=== PATIENT | female | born 1995 | race Caucasian/White ===

== ENCOUNTER → 2018-09-13 15:12 | Outpatient (CLI) | payer OTHER, SELFPAY ==
[2018-09-13 18:00] LABS: Chlamydia Trachomatis by PCR Negative (Negative); Neisserai gonorrhoeae by PCR Negative (Negative); Probe Check PASS; Sample Adequacy Control PASS; Specimen Processing Control PASS
[2018-09-16 14:12] LABS: HPV Reflexed? NOT INDICATED
--- OUTSIDE RECORDS SUMMARY | 2018-11-09 08:22 | XMS RPT_ITS ---
:1995 Author Organization OHIP Care Team Providers Name Role Phone DR VINCE BERMUDEZ Admitting Unavailable DR VINCE BERMUDEZ Attending Unavailable NO, DOCTOR ON Referring Unavailable DR VINCE BERMUDEZ Primary Care Unavailable NO, DOCTOR ON Consulting Unavailable GARLAND YENY Admitting Unavailable YENY GARSIA Attending Unavailable GARLAND YENY Primary Care Unavailable NO, DOCTOR ON Consulting Unavailable SATHYA FINN DO Admitting Unavailable SATHYA FINN DO Attending Unavailable SATHYA FINN DO Primary Care Unavailable NO, DOCTOR ON Consulting Unavailable NO, DOCTOR ON Referring Unavailable NO, DOCTOR ON Referring Unavailable NO, DOCTOR ON Consulting Unavailable EFREN, DR ANGELO Perea Admitting Unavailable EFREN, DR ANGELO Perea Attending Unavailable EFREN, DR ANGELO Perea Primary Care Unavailable BERMUDEZ, DR VINCE oCrtes Admitting Unavailable BERMUDEZ, DR VINCE Cortes Attending Unavailable BERMUDEZ, DR VINCE Cortes Primary Care Unavailable NO, DOCTOR ON Consulting Unavailable Seals, Sathya Attending Unavailable Primay Care Physicia, No Primary Care Unavailable Seals, Sathya Attending Unavailable Seals, Sathya Referring Unavailable Primay Care Physicia, No Primary Care Unavailable PROBLEMS PROBLEMS DATE TYPE CONDITION / CODE ATTENDING STATUS SOURCE 09/27/2018 Unknown Z34.81 - Encounter Sathya Florentino for supervision of Community other normal Hospital , first Repository trimester / Z34.81(ICD-10) 09/13/2018 Unknown Z12.4 - Encounter SealSathya strange for screening for [facility] malignant neoplasm Hospital of cervix / Repository Z12.4(ICD-10) 09/13/2018 Unknown Z32.01 - Encounter SealSathya strange for test, [facility] result positive / Hospital Z32.01(ICD-10) Repository 09/13/2018 Unknown Z11.3 - Encounter SealSathya strange for screening for Community infections with a Hospital predominantly Repository sexual mode of transmission / Z11.3(ICD-10) 05/16/2018 Admitting Encounter for YENY GARSIA Active Chaka Pomerene Diagnosis screening for [facility] malignant neoplasm Hospital of cervix / Repository Z124(ICD-10) 05/16/2018 Principle Encounter for YENY GARSIA Active Chaka Pomerene Diagnosis screening for [facility] malignant neoplasm [facility] of cervix / Repository Z124(ICD-10) PROCEDURES PROCEDURES No Procedure Records FoundRESULTS RESULTS URINE DRUG SCREEN Collected: 09/27/2018 Status: F Source: JODI (VISTA) 11:35 AM [facility] REPOSITORY Order Comment: Comments: UNK IMMUNITY List of Drugs Taken or Suspected? UNK TYPE CODE TESTS RESULT OUT OF RANGE REFERENCE UNITS LAB L505.0075 TO BE Normal CONFIRMED Result Comment: CONFIRMATORY TESTING FOR ALL POSITIVE URINE DRUG SCREEN RESULTS WILL ONLY BE SENT OUT UPON PHYSICIAN ORDER. VISTA Urine Drug Screen methods provide only preliminary analytical test results. A more specific alternate chemical method must be used in order to obtain a confirmed analytical result. Gas chromatography/mass spectrometery (GC/MS) is the preferred confirmatory method. Clinical consideration and professional judgement should be applied to any drug of abuse test result, particularly when preliminary positive results are used. URINE TCA TESTING MUST BE ORDERED SEPARATELY. USE TEST MNEMONIC: [facility] LAB L505.5005 VISTA UDS PH 6 Normal LAB L505.5015 <1000 ng/mL AMPHETAMINES Normal NEGATIVE LAB L505.5025 < 200 ng/mL BARBITIURATES Normal NEGATIVE LAB L505.5035 < 200 ng/mL BENZODIAZIPINE Normal NEGATIVE LAB L505.5045 < 300 ng/mL COCAINE Normal NEGATIVE LAB L505.5055 < 500 ng/mL ECSTACY Normal NEGATIVE LAB L505.5065 < 300 ng/mL METHADONE Normal NEGATIVE LAB L505.5075 < 300 ng/mL OPIATES Normal NEGATIVE LAB L505.5085 < 25 ng/mL PCP Normal NEGATIVE LAB L505.5095 < 50 High ng/mL THC POSITIVE Performed By: #### L505.5000 #### [facility] [address] [place], [place], [address] CBC W/DIFF, AUTOMATED Collected: 09/27/2018 Status: F Source: [place] 11:35 AM [facility] REPOSITORY TYPE CODE TESTS RESULT OUT OF RANGE REFERENCE UNITS LAB L100.1000 4.4-11.0 K/mm3 High WBC 13.5 LAB L100.1200 4.2-5.4 M/mm3 Normal RBC 4.46 LAB L100.1300 12.0-15.0 g/dl Normal HGB 13.4 LAB L100.1400 37-47 % Normal HCT 39.2 LAB L100.1500 81-99 fL Normal MCV 87.9 LAB L100.1600 27.0-32.0 pg Normal MCH 30.0 LAB L100.1700 32-36 g/gl Normal MCHC 34.2 LAB L100.1810 11.6-14.6 % Normal RDW CV 12.4 LAB L100.1820 35.1-43.9 fl Normal RDW SD 38.6 LAB L100.1900 150-450 K/mm3 High PLT 457 LAB L100.2000 6.2-12.0 fl Normal MPV 10.0 LAB L100.2100 47-70 % Normal NEUT% 64.4 LAB L100.2200 19-41 % Normal LY% 23.6 LAB L100.2300 0-10 % High MONO% 10.9 LAB L100.2400 0-5 % Normal EO% 0.4 LAB L100.2500 0-1 % Normal BASO% 0.3 LAB L100.2550 0.0-0.9 % Normal IM GRAN % 0.400 Result Comment: IG% - Immature Granulocytes (promyelocytes, myelocytes and metamyelocytes) > 1% indicates that a LEFT SHIFT is Present. LAB L100.2620 2.0-7.7 X10 3/uL High Absolute Neut 8.7 LAB L100.2720 0.83-4.51 X10 3/ul Normal Absolute Lymph 3.19 Performed By: #### L100.99 #### [facility] [address] [facility] [place], [place], [address] URINALYSIS, ROUTINE Collected: 09/27/2018 Status: F Source: [place]AT[place] (DIPSTICK) 11:35 AM [facility] REPOSITORY Order Comment: Comments: UNK IMMUNITY How was Urine Obtained? Urine, Random TYPE CODE TESTS RESULT OUT OF RANGE REFERENCE UNITS LAB L400.3000 Yellow COLOR Normal Yellow LAB L400.3050 Clear Normal CLARITY Sl. Cloudy LAB L400.3200 Normal mg/dl Normal GLUCOSE, UR Normal LAB L400.3300 Negative mg/dL Normal BILIRUBIN URINE Negative LAB L400.3400 Negative mg/dl High KETONE UR 150 Result Comment: CRITICAL VALUE *H CRITICAL VALUE VERIFIED. CALLED TO JUJU CHRISTIANSEN 09/27/18 Anshu Garcia RESULTS READ BACK BY SAME. LAB L400.3465 1.002-1.030 Normal SP.GR. DIPSTX 1.010 LAB L400.3550 5.0 - 8.0 pH Normal UR 7.0 LAB L400.3600 Negative mg/dl Normal PROT DIPSTX Negative LAB L400.3700 Normal mg/dl High 1 UROBILI LAB L400.3750 Negative Normal NITRITE UR Negative LAB L400.3780 Negative /ul Normal OCCULT Negative BLOOD-UR LAB L400.3800 Negative /ul High 25 LEUK ESTERASE Performed By: #### L400.2010 #### [facility] [address] [facility] [place], [address] THYROID STIM HORMONE Collected: 09/27/2018 Status: F Source: JODI (TSH) 11:35 AM [facility] REPOSITORY TYPE CODE TESTS RESULT OUT OF RANGE REFERENCE UNITS LAB L501.9520 0.358-3.74 uIU/mL Normal TSH 0.83 Performed By: #### L501.9520 #### [facility] [address] [place], [address] RUBELLA IGG Collected: 09/27/2018 Status: F Source: JODI 11:35 AM [facility] REPOSITORY Order Comment: Comments: UNK IMMUNITY TYPE CODE TESTS RESULT OUT OF RANGE REFERENCE UNITS LAB L509.4000 IU/mL Normal Rubella IgG 25.8 Result Comment: Antibody results Interpretation of Immune Status < 5 IU/ml Presumed Non-immune 5 - < 10 IU/ml Equivocal > or = 10 IU/ml Presumed Immune Performed By: #### L509.4000, L3890.6005 #### [facility] [address] [place], [place], [address] HIV - WCH Collected: 09/27/2018 Status: F Source: [place] 11:35 AM [facility] REPOSITORY Order Comment: Comments: UNK IMMUNITY TYPE CODE TESTS RESULT OUT OF RANGE REFERENCE UNITS LAB L3890.6005 Nonreactive Normal HIV - [facility] Non-Reactive Performed By: #### L509.4000, L3890.6005 #### [facility] [address] [place], [address] T AND S-NO Collected: 09/27/2018 Status: F Source: JODI CHARGE W/PNP 11:35 AM [facility] REPOSITORY Order Comment: Reason for Type AND Screen/Red Cells: Surgery? N TYPE CODE TESTS RESULT OUT OF RANGE REFERENCE UNITS LAB B10.0800 O Normal BLOOD POSITIVE TYPE GEL LAB B100.4050 Normal Ab SCREEN NEGATIVE GEL Performed By: #### B100.7550 #### [facility] [address] [place], [place], [address] TOXOPLASMA GONDII IGM Collected: 09/27/2018 Status: F Source: JODI 11:35 AM [facility] REPOSITORY TYPE CODE TESTS RESULT OUT OF RANGE REFERENCE UNITS LAB L3400.2000 0.0-7.9 AU/mL Normal TOXOP IgM < 3.0 Result Comment: Negative <8.0 Equivocal 8.0 - 9.9 Positive >9.9 LAB L3400.3955 . Normal Tox. gondii Comment Com Result Comment: It is presumed the patient has not been infected with and is not undergoing an acute infection with Toxoplasma. If symptoms persist, submit a new specimen after three weeks. Performed at: [facility] [id number] Molding Room Supervisor: Nakul Segura PhD, Phone: [phone] Performed By: #### L3400 #### [facility] (refer to report for specific site) refer to report for address and phone number HEPATITIS B SURFACE Collected: 09/27/2018 Status: F Source: JODI AG 11:35 AM [facility] REPOSITORY Order Comment: Comments: UNK IMMUNITY TYPE CODE TESTS RESULT OUT OF RANGE REFERENCE UNITS LAB L3100.0400 Negative Normal HB Negative SURF AG Result Comment: Performed at: [facility] [employer] [id number] Molding Room Supervisor: Nakul Segura PhD, Phone: [phone] Performed By: #### L3100.0390, L3100.0625, L3300.9950, L3400.0000, L3 #### [facility] (refer to report for specific site) refer to report for address and phone number HEPATITIS C ANTIBODIES Collected: 09/27/2018 Status: F Source: JODI 11:35 AM [facility] REPOSITORY Order Comment: Comments: UNK IMMUNITY TYPE CODE TESTS RESULT OUT OF RANGE REFERENCE UNITS LAB L3100.0650 0.0-0.9 s/co ratio Normal HEP C AB <0.1 Result Comment: Negative: < 0.8 Indeterminate: 0.8 - 0.9 Positive: > 0.9 The CDC recommends that a positive HCV antibody result be followed up with a HCV Nucleic Acid Amplification test ([id number]). Performed By: #### L3100.0390, L3100.0625, L3300.9950, L3400.0000, L3 #### [facility] (refer to report for specific site) refer to report for address and phone number V-ZOSTER VIRUS ACUTE Collected: 09/27/2018 Status: F Source: JODI IGM 11:35 AM [facility] REPOSITORY Order Comment: Comments: UNK IMMUNITY TYPE CODE TESTS RESULT OUT OF RANGE REFERENCE UNITS LAB L3300.9950 0.00-0.90 index Normal V ZOS IgM < 0.91 [address] Result Comment: Negative <0.91 Borderline 0.91 - 1.09 Positive >1.09 Performed By: #### L3100.0390, L3100.0625, L3300.9950, L3400.0000, L3400.1989 #### [facility] (refer to report for specific site) refer to report for address and phone number V-ZOSTER IGG Collected: 09/27/2018 Status: F Source: JODI (IMMUNITY) 11:35 AM [facility] REPOSITORY Order Comment: Comments: UNK IMMUNITY TYPE CODE TESTS RESULT OUT OF RANGE REFERENCE UNITS LAB L3400.0000 Immune >165 index Normal VZOST IgG 722 [id number] Result Comment: Negative <135 Equivocal 135 - 165 Positive >165 A positive result generally indicates exposure to the pathogen or administration of specific immunoglobulins, but it is not indication of active infection or stage of disease. Performed By: #### L3100.0390, L3100.0625, L3300.9950, L3400.0000, L3400.1989 #### [facility] (refer to report for specific site) refer to report for address and phone number TOXOPLASMA GONDII IGG Collected: 09/27/2018 Status: F Source: JODI 11:35 AM [facility] REPOSITORY Order Comment: Comments: UNK IMMUNITY TYPE CODE TESTS RESULT OUT OF RANGE REFERENCE UNITS LAB L3400.3900 0.0-7.1 IU/mL Normal TOXOPIgG < 3.0 Result Comment: Negative <7.2 Equivocal 7.2 - 8.7 Positive >8.7 Performed By: #### L3100.0390, L3100.0625, L3300.9950, L3400.0000, L3400.1989 #### [facility] (refer to report for specific site) refer to report for address and phone number RPR Collected: 09/27/2018 Status: F Source: JODI 11:35 AM [facility] REPOSITORY TYPE CODE TESTS RESULT OUT OF REFERENCE UNITS RANGE LAB L700.5100 NONREACTIVE Normal RPR NONREACTIVE Performed By: #### L700.5100 #### [facility] [address] [place], [address] CT/NG WCH BY PCR Collected: 09/13/2018 Status: F Source: [place] 1:50 PM [facility] REPOSITORY TYPE CODE TESTS RESULT OUT OF RANGE REFERENCE UNITS LAB L8200.2100 Negative Normal Chlam Negative Trac PCR LAB L8200.2200 Negative Normal NG by Negative PCR Performed By: #### L8200.2000 #### [facility] [address] [place], [address] PAP I-G W/RFX HRHPV Collected: 09/13/2018 Status: F Source: [place]AT[place] 1:50 PM [facility] REPOSITORY Order Comment: CYTOLOGY INFORMATION: - CLINICAL INFORMATION: - DATE LMP/MENOPAUSE: 07/30/18 LMP - COLLECTION VIAL: Thin Prep Vial - DOUGH SHEETER SOURCE: CERVICAL/ENDOCERVICAL - COLLECTION TECHNIQUE: BRUSH/SPATULA Specimen Comment: [id number] Specimen Comment: Source.............Cervix;Endocervix Specimen Comment: LMP / Prev Treat...SYA=[id number] Specimen Comment: Other.............. Specimen Comment: No. of containers..01 ThinPrep Vial TYPE CODE TESTS RESULT OUT OF RANGE REFERENCE UNITS LAB L7400.0800 . Normal DIAGN Comment Result Comment: NEGATIVE FOR INTRAEPITHELIAL LESION AND MALIGNANCY. LAB L7400.0900 . Normal ADEQ Comment Result Comment: Satisfactory for evaluation. Endocervical and/or squamous metaplastic cells (endocervical component) are present. LAB L7400.1400 . Normal PERFORM Comment Result Comment: Mariela Boss, Supervisory Transport Technician (ASCP) LAB L7400.2575 . Normal TEST METHOD Comment Result Comment: This liquid based ThinPrep(R) pap test was screened with the use of an image guided system. LAB L7400.2600 . Normal . COMM LAB L7400.2700 . Normal PAPSMR Comment Result Comment: The Pap smear is a screening test designed to aid in the detection of premalignant and malignant conditions of the uterine cervix. It is not a diagnostic procedure and should not be used as the sole means of detecting cervical cancer. Both false-positive and false-negative reports do occur. LAB L7400.2800 . Normal HPV RFLX Comment Result Comment: The HPV DNA reflex criteria were not met with this specimen result therefore, no HPV testing was performed. Performed at: - [facility] [address] [place] [id number] Molding Room Supervisor: Leilani Bettencourt MD, Phone: [phone] Performed By: #### L7400.0350 #### [facility] (refer to report for specific site) refer to report for address and phone number EMERGENCY REPORT Observed: 06/01/2018 Status: F Source: CHAKA DIXON 8:57 AM [facility] EMERGENCY ROOM REPORT NAME ACCOUNT SEX AGE ADMIT DISCHARGE PT MED. RECORD# NUMBER DATE DATE TYPE DAVID [id number] F 05/30/18 05/31/18 3 KENRICK Garcia [id number] ROOM: ER DATE OF : 1995 DICTATING PHYSICIAN: Sathya Finn ADDENDUM: DIAGNOSTIC DATA: CAT scan showed a right adnexal cyst that measured 2.6 cm. Liver, spleen, pancreas, and kidneys were normal. Appendix and gallbladder were normal. Negative for free air or fluid. Urinalysis showed 25 leukocyte esterase with 1 to 5 white cells and 4+ bacteria. I did give the patient 1 gram of Rocephin IV and we do have a urine culture pending. Her test was negative. On the chemistry panel, her potassium came back low at 2.8, so I gave her 40 mEq of potassium p.o. here and she kept that down. Her sodium was 138, potassium 2.8, chloride 103, CO2 22.1, glucose 85, BUN 10, creatinine 1.0. AST 14, alkaline phosphatase 44, ALT 8, total bilirubin 0.5. Anion gap was 16. White count was 10.4 with a hemoglobin of 12.4, hematocrit 35.4, platelet count 315,000. EMERGENCY DEPARTMENT COURSE AND TREATMENT: I did give the patient some IV fluids here and I gave her Xanax 0.5 mg p.o. for her anxiety and she is feeling better now. She was also give Toradol 30 mg IV here for pain, Zofran 4 mg IV for her nausea, and she is feeling better. As noted, she was given the Rocephin for the urinary tract infection. We do have a urine culture pending. DIAGNOSES: 1. Urinary tract infection. 2. Right ovarian cyst. 3. Hypokalemia. 4. Anxiety. PLAN/DISPOSITION: She does have an NET SOFTWARE ENGINEER doctor that she sees, Dr. Florentino, in [place], so I have asked her to follow up with him regarding the ovarian cyst, and she can follow up with her primary care provider, Yeny Garsia, for her urinary tract infection. The patient was given a prescription for K-Dur 20 mEq 1 p.o. b.i.d., dispensed #20 with no refill, Zofran ODT 4 mg 1 p.o. every 8 hours p.r.n. nausea and vomiting, dispensed #15 with no refill, Naprosyn 500 mg 1 p.o. every 12 hours as needed for pain, dispensed #20 with no refill. She can take that with food, and Bactrim DS 1 p.o. b.i.d., dispensed #20 with no refill. I did encourage her to make sure she takes the Bactrim for the entire 10 day course and to follow up with her family doctor regarding the urine culture. The patient was discharged in improved, clinically stable condition. Nursing notes reviewed. Page 1 of 2 [facility] Emergency Room Report Dictated By: Sathya Finn DO 05/30/18 23:24 JOB #: [id number] Transcribed By: am 05/31/18 13:10 Electronically signed by: E-Sign: Dr. Sathya Finn D.O. 06/01/18 08:57 Page 2 of 2 [facility] Emergency Room Report EMERGENCY REPORT Observed: 06/01/2018 Status: F Source: CHAKA DIXON 8:56 AM [facility] EMERGENCY ROOM REPORT NAME ACCOUNT SEX AGE ADMIT DISCHARGE PT MED. RECORD# NUMBER DATE DATE TYPE DAVID [id number] F 22 05/30/18 05/31/18 3 KENRICK Garcia [id number] ROOM: ER DATE OF : 1995 DICTATING PHYSICIAN: Sathya Finn TIME SEEN: 7:20 p.m. HISTORY OF PRESENT ILLNESS: This is a 22-year-old white female complaining of left flank pain for the past week. She states the pain is gradually getting worse. She does have a history of kidney stones. Her most recent kidney stone was about 5 years ago when she was still in high school. The pain was severe enough that she states that she felt like she was going to pass out in the shower. Now she feels very anxious. She does have a history of anxiety and usually takes Xanax for it, and she is asking for something for anxiety. She presently rates the severity of her pain as a 7 on a scale of 1-10. She describes it as sharp in nature. The pain is mildly worse with movement. It does not radiate anywhere. PAST MEDICAL HISTORY: Schizophrenia, anxiety, and previous kidney stones. PAST SURGICAL HISTORY: Tonsillectomy/adenoidectomy. ALLERGIES: She is allergic to morphine. SOCIAL HISTORY: The patient lives at home with her family. She does not smoke. She does not drink alcohol, but she does smoke marijuana. REVIEW OF SYSTEMS: She denies any chest pain, shortness of breath, cough, sputum, wheezing, abdominal pain, nausea, vomiting, diarrhea, constipation, melena, hematochezia, headache, numbness, unsteady gait, weakness, or neck or joint pain but does complain of left flank/left upper lumbar back pain for the past week. She denies any skin rash or swelling, hives, hay fever, or swollen glands. Further review of systems is negative. PHYSICAL EXAMINATION: Vital signs: Blood pressure is 121/83, pulse 89, respirations 18, temperature 99, pulse oximetry 99%, and weight 120 pounds. The patient is alert and oriented x3. She does appear in some moderate distress secondary to left flank pain. She is somewhat tearful and anxious, but she is pleasant and cooperative. HEENT: Head appears atraumatic. Pupils are equal and reactive to light. Red reflexes are intact bilaterally. Extraocular muscles are intact. No conjunctival injection. No scleral icterus or lid edema. Ears: TMs are intact bilaterally. No erythema is noted. No external auditory canal edema or bleeding. Nose exhibits no rhinorrhea or Page 1 of 2 [facility] Emergency Room Report epistaxis. Mouth: Mucous membranes are moist. No pharyngeal erythema. Uvula is midline and elevates. Neck is supple. Trachea is midline. No JVD or lymphadenopathy. No posterior cervical tenderness. No nuchal rigidity. Lungs are clear to auscultation in all lung taylor. No adventitious sounds are noted. No accessory muscle use. CV: Heart rate and rhythm are regular without murmur. Abdomen is soft and nontender with normoactive bowel sounds x4 quadrants. No guarding or rigidity. No rebound. No palpable abdominal masses. No hepatosplenomegaly. Back does exhibit some left costovertebral angle tenderness. No midline tenderness or deformity. Extremities: No edema or cyanosis. Peripheral pulses are intact. No motor or sensory deficits are noted. Hand senior tax analyst are strong and symmetric. Skin is warm and dry. No diaphoresis or rash. Neurologic examination shows cranial nerves II through XII to be grossly intact. No focal deficits noted. The patient has normal speech. DIAGNOSTIC DATA: EKG done at 1916 hours shows normal sinus rhythm at a rate of 78 bpm with no acute ST-segment changes noted. Bath is approximately 60 degrees. EMERGENCY DEPARTMENT COURSE AND TREATMENT: Presently, we will get a CT of the abdomen/pelvis to rule out a left kidney stone. We will get a urinalysis to rule out a kidney infection. We will get a test to rule out ectopic . We will check a CBC and CMP. We will give her a liter of IV normal saline and Xanax 0.5 mg p.o. for anxiety. She does look somewhat anxious, but she is pleasant and cooperative. She is a little bit teary-eyed. Dictated By: Sathya Finn DO 05/30/18 19:39 JOB #: [id number] Transcribed By: judith 05/31/18 07:20 Electronically signed by: E-Sign: Dr. Sathya Finn DUsha 06/01/18 08:56 Page 2 of 2 [facility] Emergency Room Report CT ABDOMEN/PELVIS W Observed: 05/30/2018 Status: F Source: CHAKA DIXON 9:24 PM [place] [id number] Patient: KENRICK JACKSON. Phone#: : [phone] Age: 22 Gender: F Pt. Type: ER Account: [id number] Location: 052 Ordering: SATHYA FINN Exam Date: 05/30/2018/21:12 Family Phys: NO DOCTOR Charge Code: [id number] Physician: [facility] Order #: [id number] DLP Dose#: PROCEDURE: CT ABDOMEN/PELVIS WITH CONTRAST COMPARISON: [facility], CT, ABDOMEN/PELVIS W CON, 12/06/2012, 0:16. INDICATIONS: Abdominal Pain TECHNIQUE: After obtaining the patient's consent, CT images were created with non-ionic intravenous contrast material. All CT scans at this facility use dose modulation, iterative reconstruction, and/or weight based dosing when appropriate to reduce radiation dose to as low as reasonably achievable. IV CONTRAST: Omnipaque 350,80ml TOTAL DOSE: 8.8 CTDIvol(mGy) FINDINGS: LIVER: Normal. No enlargement, atrophy, abnormal density, or significant focal lesion. BILIARY: Normal. No visible dilatation or calcification. PANCREAS: Normal. No lesion, fluid collection, ductal dilatation, or atrophy. SPLEEN: Normal. No enlargement or focal lesion. KIDNEYS: Normal. No mass, obstruction, or calcification. ADRENALS: Normal. No mass or enlargement. AORTA/VASCULAR: Normal. No aneurysm or dissection. RETROPERITONEUM: Normal. No mass or adenopathy. BOWEL/MESENTERY: Normal. No visible mass, obstruction, or bowel wall thickening. ABDOMINAL WALL: Normal. No mass or hernia. URINARY BLADDER: Normal. No visible focal wall thickening, lesion, or calculus. PELVIC NODES: Normal. No adenopathy. Continued Report - Page 2 of 2 Patient: KENRICK JACKSON Phone#: : 1995 Age: 22 Gender: F Pt. Type: ER Account: [id number] Location: 052 Ordering: SATHYA FINN Exam Date: 05/30/2018/21:12 Family Phys: NO DOCTOR Charge Code: [id number] Physician: [facility] Order #: [id number] DLP Dose#: PELVIC ORGANS: A 22 mm right adnexal cyst is present. No visible mass. Pelvic organs appropriate for patient age. BONES: Normal. No bony lesion or fracture. LUNG BASES: Normal. No visible pulmonary or pleural disease. OTHER: Negative. CONCLUSION: No acute disease. Dictated by: Isabel Joseph MD on 05/31/2018 at 9:27 Approved by: Isabel Joseph MD on 05/31/2018 at 9:27 URINE Collected: 05/30/2018 Status: F Source: [facility] 8:40 PM [facility] REPOSITORY TYPE CODE TESTS RESULT OUT OF REFERENCE UNITS RANGE LAB NEGATIVE UR(LOINC) UR NEGATIVE LAB INTERNAL QC(LOINC) INTERNAL QC PASS LAB EXTERNAL QC DONE?(LOINC) EXTERNAL QC YES DONE? Performed By: #### [id number] #### [address] [address] URINALYSIS Collected: 05/30/2018 Status: F Source: [facility] [place] 8:40 PM [facility] REPOSITORY TYPE CODE TESTS RESULT OUT OF REFERENCE UNITS RANGE LAB URINALYSIS (LOINC) URINALYSIS Result Comment: URINALYSIS LAB Specimen Type(LOINC) Specimen Type Void LAB Color(LOINC) NORMAL: YELLOW Color p.yel LAB Clarity(LOINC) NORMAL: CLEAR Clarity sl.cloudy LAB ph(LOINC) NORMAL: 5.0-8.0 ph 5 LAB Protein(LOINC) NORMAL: NEGATIVE Protein Abnormal 30 LAB Glucose(LOINC) NORMAL: NORMAL Glucose NORM LAB Ketone(LOINC) NORMAL: NEGATIVE Ketone Abnormal 50 LAB Bilirubin(LOINC) NORMAL: NEGATIVE Bilirubin NEG LAB Blood(LOINC) NORMAL: NEGATIVE Blood NEG LAB Urobilinog(LOINC) NORMAL: NORMAL Urobilinog NORM LAB Sp Murdock(LOINC) NORMAL: 1.010-1.030 Sp Murdock 1.010 LAB Nitrite(LOINC) NORMAL: NEGATIVE Nitrite NEG LAB Leukocytes(LOINC) NORMAL: NEGATIVE Leukocytes Abnormal 25 LAB Microscopic(LOINC ) Microscopic SEE BELOW Result Comment: MICROSCOPIC LAB Wbc(LOINC) 0-5/hpf Wbc 1-5 LAB Rbc(LOINC) 0-3/hpf Rbc NONE LAB Casts(LOINC) Casts NONE LAB Crystals(LOINC) Crystals NONE LAB Amorphous(LOINC) Amorphous NONE LAB Bacteria(LOINC) Bacteria 4+ LAB Epi Cells(LOINC) Epi Cells MANY LAB Mucous(LOINC) Mucous TRACE LAB Yeast(LOINC) Yeast NONE Performed By: #### [id number] #### [facility],[address] [place] [address] 14187 Observed: 05/30/2018 Status: F Source: [facility]AKA DIXON CULTURE URINE 8:40 PM [facility] REPOSITORY CULTURE URINE _URINE CULTURE_ M I C R O B I O L O G Y R E P O R T FINAL Antimicrobial Susceptibility and Organism Identification Report Specimen Number : [id number] Requested : 05/30/18 Specimen Source : URINE Collected : 05/30/18 20:40 [place] of Isolation : Emergency Room Received : 05/30/18 20:40 Requesting Physician : HUMA Patient/Specimen Tests and Comments Specimen Comments FINAL REPORT: URINE COLONY COUNT: [id number] CFU/CC >OR=TO 3 COLONY TYPES PROBABLE CONTAMINATION Tech : Source : URINE ID # : [id number] FINAL Report Date : / / : Collected : 05/30/18 20:40 06/02/18.0910.JLN. 06/01/18.1138.BKO. 06/02/18.0910.JLN.COMPLETE Performed By: #### [id number] #### [facility],[address] [place] [address] CBC Collected: 05/30/2018 Status: F Source: [facility] 8:10 PM [facility] REPOSITORY TYPE CODE TESTS RESULT OUT OF RANGE REFERENCE UNITS LAB CBC(LOINC) CBC Result Comment: CBC-COMPLETE BLOOD COUNT LAB WBC(LOINC) 4.5 - 10.8 x 10EE3/UL WBC 10.4 LAB RBC(LOINC) 4.10 - x 10EE6/UL 5.30 RBC 4.12 LAB HEMOGLOBIN(LOINC) 12.0 - g/dl 16.0 HEMOGLOBIN 12.4 LAB HEMATOCRIT(LOINC) 34.0 - % 46.0 HEMATOCRIT 35.4 LAB MCV(LOINC) 80 - 99 fl MCV 86 LAB MCH(LOINC) 27 - 33 pg MCH 30 LAB MCHC(LOINC) 32 - 36 X10 3 MCHC 35 LAB RDW/CV(LOINC) 12.0 - % 15.6 RDW/CV 12.4 LAB PLATELET(LOINC) 150 - 450 x10EE3/UL PLATELET 315 LAB MPV(LOINC) 6.6 - 10.5 fl MPV 9.2 Result Comment: AUTOMATED DIFFERENTIAL LAB NEUT %(LOINC) 46.0 - 76.0 % NEUT % 52.5 LAB LYMPH %(LOINC) 20.0 - 45.0 % LYMPH % 34.5 LAB MONOS %(LOINC) 0.0 - 10.0 % MONOS % High 11.1 LAB EO %(LOINC) 0.0 - 7.0 % EO % 1.3 LAB BASO %(LOINC) 0.0 - 2.0 % BASO % 0.6 LAB Lymph #(LOINC) 0.80 - 2.80 x10EE3/U L Lymph # High 3.60 LAB Neut #(LOINC) 1.50 - 7.10 x10EE3/U L Neut # 5.50 LAB Coffee #(LOINC) 0.20 - 1.00 x10EE3/U L Coffee # High 1.10 LAB EO #(LOINC) 0.00 - 0.50 x10EE3/U L EO # 0.10 LAB Baso #(LOINC) 0.00 - 0.10 x10EE3/U L Baso # 0.10 LAB MANUAL DIFF([facility]) MANUAL DIFF N/A LAB MORPHOLOGY(INC ) MORPHOLOGY N/A Result Comment: {CD] Performed By: #### [id number] #### [facility],[address] [place] [address] CMP WITH EGFR Collected: 05/30/2018 Status: F Source: [facility] 8:10 PM [facility] REPOSITORY TYPE CODE TESTS RESULT OUT OF RANGE REFERENCE UNITS LAB CMP with eGFR(INC) CMP with eGFR Result Comment: COMPREHENSIVE METABOLIC PANEL LAB SODIUM(LOINC) 136 - 145 mmol/l SODIUM 138 LAB POTASSIUM(LOINC) 3.5 - 5.1 mmol/L Low Alert POTASSIUM 2.8 Result Comment: { CALLED TO OREN @2041/ADL { READ BACK BY OREN RA@2041 LAB CHLORIDE(LOINC) 98 - 107 mmol/L CHLORIDE 103 LAB CO2(LOINC) 21.0 - mmol/L 31.0 CO2 22.1 LAB GLUCOSE(LOINC) 74 - 106 mg/dl GLUCOSE 85 LAB BUN(LOINC) 6 - 20 mg/dl BUN 10 LAB CREATININE(LOINC) 0.6 - 1.2 mg/dl CREATININE 1.0 LAB AST/SGOT(LOINC) 13 - 39 U/L AST/SGOT 14 LAB ALK PHOS(LOINC) 38 - 126 U/L ALK PHOS 44 LAB CALCIUM(LOINC) 8.6 - mg/dl 10.2 CALCIUM 9.3 LAB TOTAL PROTEIN(LOINC) 6.4 - 8.3 g/dl TOTAL PROTEIN 7.7 LAB ALBUMIN(LOINC) 3.4 - 4.8 g/dL ALBUMIN 4.8 LAB GLOBULIN(LOINC) 1.5 - 3.8 G/DL GLOBULIN 2.9 LAB A/G RATIO(LOINC) 0.9 - 1.6 A/G High RATIO 1.7 LAB TOTAL BILI(LOINC) 0.0 - 1.5 mg/dl TOTAL BILI 0.5 LAB B/C RATIO(LOINC) 0 - 30 ratio B/C RATIO 10 LAB ALT/SGPT(LOINC) 8 - 35 U/L ALT/SGPT 8 LAB ANION GAP(LOINC) 10 - 20 mmol/L ANION GAP 16 LAB AGE(LOINC) years AGE 22 LAB eGFR(LOINC) 60 - 999 ML/MINUTE eGFR >60 LAB eGFR(AA)(LOINC) 60 - 999 ML/MINUTE eGFR(AA) >60 Result Comment: ACCORDING TO THE NATIONAL KIDNEY DISEASE EDUCATION PROGRAM(NKDE), A NORMAL eGFR IS A VALUE GREATER THAN OR EQUAL TO 60 ML/MIN/1.73 SQ METERS. CHRONIC KIDNEY DISEASE: <60mL/MIN/1.73 SQ METERS KIDNEY FAILURE: <15mL/MIN/1.73 SQ METERS THIS TEST SHOULD ONLY BE USED FOR PATIENTS 18 YEARS OF AGE AND OLDER. Performed By: #### [id number] #### [facility],[address] [place] [address] DOUGH SHEETER CYTOLOGY REPORT Observed: 05/16/2018 Status: F Source: [facility] 11:07 AM [facility] REPOSITORY . Pathology Reports Accession: Collected Date/Time: Received Date/Time: Pathologist: [id number] 05/16/2018 11:07 EDT 05/17/2018 18:00 EDT MD FORTINO SANTOS Media Analyst Cytology Report SPECIMEN: Specimen Description: Liquid Prep Reflex ASCUS Specimen: Cervical/Endocervical Screening or Diagnostic: Screening RELEVANT HISTORY: LMP: 04-25-18 [id number] SPECIMEN ADEQUACY: SATISFACTORY FOR EVALUATION ENDOCERVICAL/TRANSFORMATIONAL ZONE COMPONENT PRESENT INTERPRETATION/RESULTS: ATYPICAL SQUAMOUS CELLS OF UNDETERMINED SIGNIFICANCE. ADJUNCTIVE TESTING: HIGH RISK HPV DNA TESTING ORDERED, REPORT TO FOLLOW UNDER SEPARATE COVER ORGANISMS: FUNGAL ORGANISMS MORPHOLOGICALLY CONSISTENT WITH FLEX SPECIES. Electronically Signed by Pathology report verified by [facility] Screened by: GL MGS Electronically signed by FORTINO SANTOS MD Sign-Out Date: 05/23/2018 15:47 Performing Lab: [facility], [address] [place] [id number] [place] [address] Disclaimer The Pap test is a screening test for cervical cancer. As evidenced by published data, it is subject to both inherent false negative and false positive results. Your patient's results should be interpreted in context with pertinent clinical history including gynecological examination. Performed By: #### GYCR #### [place] [id number] HPV Collected: 05/16/2018 Status: F Source: [facility] 11:07 AM [facility] REPOSITORY Order Comment: Order placed by AP_HPV_REFLEX rule from [id number] TYPE CODE TESTS RESULT OUT OF RANGE REFERENCE UNITS LAB BFHPV(LOINC ) HPV Cervix Source LAB HPVINT(LOIN See Interp HPVN C) Unknown HPV Interp Result Comment: High Risk HPV Typing is Positive: High Risk HPV Types detected, other than HPV 16 or HPV 18. Specimen is positive for the DNA of any one of, or combination of, the following high risk HPV types: 31, 33, 35, 39, 45, 51, 52, 56, 58, 59, 66, 68. HPV types 16 and 18 DNA were undetectable or below the pre- set threshold. The stevan High-Risk HPV DNA Test is not intended for use as a screening device for Pap normal women under age 30 and is not intended to substitute for regular Pap screening. The stevan High-Risk HPV DNA Test is designed to augment existing methods for the detection of cervical disease and should be used in conjunction with clinical information derived from other diagnostic and screening tests, physical examinations and full medical history in accordance with appropriate patient management procedures. NOTE: A negative result does not preclude the presence of HPV infection because results depend on adequate specimen collection, absence of inhibitors and sufficient DNA to be detected. See Interp HPVO Performed By: #### HPV #### [place] [address] CNCO Observed: 01/13/2018 Status: COMPLETED Source: [place] 12:[address] [facility] REPOSITORY Letter Text [facility], [address] [address] January 13, 2018 RE: Kenrick Jackson [address] [facility] [address] 1995 Dear Parent/Guardian of Kenrick, We have tried to contact you in regards to your child's Need for Routine Physical Our efforts to reach you have been unsuccessful. Please call [phone] to coordinate your child's plan of care. Thank you and we look forward to talking with you. Sincerely, [facility] EMERGENCY DEPARTMENT Observed: 10/19/2017 Status: F Source: CHAKA RAFALDAMION SUMMARY 7:14 AM [facility] EMERGENCY DEPARTMENT SUMMARY NAME NUMBER SEX AGE ADMIT DISC TYPE MED.RECORD# DAVID Garcia [id number] F 10/12/17 10/12/17 Anila [id number] ROOM:ER-A DATE OF :1995 PHYSICIAN NO.:[id number] PHYSICIAN NAME:ALYCIA Bermudez M.D. PHYSICIAN:NO DOCTOR ON ADMISSION SHEET CHIEF COMPLAINT: Anxiety. HISTORY OF PRESENT ILLNESS: The patient has been seen a number of times here over the last several weeks initially with significant depression. She had admitted to a psychiatric facility and after that, has been having ongoing anxiety. She was seen a couple of weeks ago for extrapyramidal side effects, which have been improved after she was taking Cogentin. However, she has run out of her medications and has not been able to see Mayelin Garsia, because she is out of the office this week. She has felt significantly more anxious today. She is not feeling suicidal. She does have occasional nausea with occasional vomiting, but no fever or chills. PAST MEDICAL HISTORY: As mentioned above. PAST SURGICAL HISTORY: She has had previous tonsillectomy. MEDICATIONS: Per med rec list. ALLERGIES: Morphine. SOCIAL HISTORY: She lives at home. She does not smoke or drink alcohol. She does use marijuana regularly. PHYSICAL EXAMINATION: This is a 21-year-old anxious appearing, minimally tearful female who does not appear in any acute distress. She responds appropriately to questions and commands. Her skin is pink, warm and dry. ENT exam is normal. Neck is supple. Lungs are clear. Cardiac exam shows regular rhythm without ectopy or murmurs. Good peripheral pulses and capillary refill. Vital signs: Blood pressure 117/83, pulse 69, respirations 18, temperature 98.1. DIAGNOSIS: PLAN/DISPOSITION: I reviewed her medications and did give her prescriptions for quetiapine, lorazepam and benztropine. She is to follow up with Mayelin Garsia within the next week for further evaluation. Return if symptoms worsen. D: Vince Bermudez MD TD: 13:18 JOB #: [id number] Transcribed by: eugenia 10/13/2017 04:08 EMERGENCY REPORT Observed: 10/05/2017 Status: F [facility] EMERGENCY ROOM REPORT NAME NUMBER SEX AGE ADMIT DISC TYPE MED.RECORD# DAVID Garcia [id number] F 21 09/30/17 09/30/17 E.RJulius [id number] ROOM:ER-C DATE OF :1995 PHYSICIAN NO.:[id number] PHYSICIAN NAME:ALYCIA Bermudez M.D. PHYSICIAN: FAMILY PHYSICIAN: NO DOCTOR CHIEF COMPLAINT: Jaw pain and facial spasms. HISTORY OF PRESENT ILLNESS: The patient started getting some jaw pain after awakening this morning. She had an episode of emesis, and has been having increasing spasm like symptoms of her jaw making it hard to move her mouth. She presents crying and very anxious appearing with these symptoms. The patient had just been discharged from [facility] yesterday for treatment for exacerbation of schizophrenia. She is on Seroquel, and was also given a prescription for Lorazepam, but she has not filled that or taken that yet. PAST MEDICAL HISTORY: Significant for bipolar disorder in the past, more recently diagnosed with schizophrenia and posttraumatic concussion disorder. MEDICATIONS: As noted on the med rec list. ALLERGIES: Morphine. PAST SURGICAL HISTORY: She has had previous wisdom teeth surgery. SOCIAL HISTORY: She lives at home with significant other who does come with her. She does not smoke or drink alcohol. She does use marijuana frequently. PHYSICAL EXAMINATION: This is a 21-year-old very anxious, tearful female who is awake, generally alert, has obvious facial and jaw spasm. HEENT: Otherwise unremarkable. Neck is supple. Lungs are clear. Cardiac exam is regular, tachy rate without ectopy or murmurs. Abdomen is very thin, but soft. She does move all extremities appropriately without any trouble moving her arms or legs. Good peripheral pulses. Capillary refill mildly diminished about 2 seconds. Vital signs: Temp 97.2, pulse 140, respirations 20, blood pressure 117/32. DIAGNOSTIC DATA: I did check some labs. These returned showing a CBC with a normal white count and differential, H&H was normal. CMP showed a mildly low potassium of 3.3, otherwise essentially unremarkable. Urinalysis was unremarkable and urine test was negative. Urine drug screen positive for cocaine, benzodiazepines, and THC. EMERGENCY DEPARTMENT COURSE AND TREATMENT: The patient had an IV of normal saline, a liter of fluids, 25 mg of Benadryl IV was given, and 1 mg of Ativan was given. She felt very much improved with this and her spasm type symptoms resolved. DIAGNOSIS: Acute dystonic reaction probably secondary to the Seroquel with anxiety and hyperventilation associated. PLAN/DISPOSITION: The patient was discharged to home. She was told to get her Ativan filled and begin on that. I did give her a prescription for Cogentin 1 mg b.i.d., and she is to follow up with her family doctor or psychiatrist within the next 1 to 2 days for a recheck, returning if symptoms worsen. D: Vince Bermudez MD TD: 12:44 JOB #: [id number] Electronically signed by: Not Currently Signed Transcribed by: am 10/01/2017 10:40 EMERGENCY ROOM REPORT DAVID Garcia 1 EMERGENCY REPORT Observed: 10/05/2017 Status: F Source: [facility] 7:05 AM [facility] EMERGENCY ROOM REPORT NAME NUMBER SEX AGE ADMIT DISC TYPE MED.RECORD# DAVID Garcia [id number] F 21 09/28/17 09/28/17 E.RJulius [id number] ROOM:ER-B DATE OF :1995 PHYSICIAN NO.:[id number] PHYSICIAN NAME:ALYCIA Philip D.O. PHYSICIAN:NO DOCTOR FAMILY PHYSICIAN: NO DOCTOR CHIEF COMPLAINT: Suicidal. HISTORY OF PRESENT ILLNESS: The patient is diagnosed with anxiety, depression, and more recently schizophrenia. She states that she has been hearing some voices occasionally. However, she has been hearing more voices more frequently, and today they are telling her to take all of her pills to kill herself. She states that she has been more anxious and feels like her skin is crawling over the last few days. She was able to sleep some last night, but overall her sleep has been poor. She got into an argument this morning, and since then she states that she just cannot stop crying and she continues to hear the voices as mentioned. She was brought here with her significant other. PAST MEDICAL HISTORY: Significant for posttraumatic concussion disorder, bipolar disorder, and schizophrenia. MEDICATIONS: Per med rec list. ALLERGIES: She is allergic to morphine. PAST SURGICAL HISTORY: She has had a previous tonsillectomy. No other surgeries. SOCIAL HISTORY: The patient lives at home with significant other. She does not smoke or drink alcohol. She does use marijuana regularly. REVIEW OF SYSTEMS: No recent illnesses or injuries. No fever, chest or abdominal pain. She has moderate nausea, but no vomiting. PHYSICAL EXAMINATION: This is a 21-year-old thin, white female who is very tearful and sobbing. She does respond appropriately to questions and commands. Her skin is pink, warm, and dry. HEENT: Reddened conjunctiva, otherwise all within normal limits. Neck is supple without adenopathy. Lungs are clear without crackles or wheezes. Cardiac exam is regular rhythm without any ectopy, murmurs, gallops, or rubs. Abdomen is thin, soft and nontender. Good peripheral pulses. Good capillary refill. Vital signs: Temp 97.9, pulse 88, respirations 16, blood pressure 135/108. EMERGENCY DEPARTMENT COURSE AND TREATMENT: Her O2 saturation is 97%. She was given a dose of Zofran, a dose of lorazepam. Lab studies and urinalysis were obtained. DIAGNOSIS/PLAN/DISPOSITION: Crisis Counselor is notified, and has not yet seen the patient. Final management and disposition are pending. D: Vince Bermudez MD TD: 12:04 JOB #: [id number] Electronically signed by: Not Currently Signed Transcribed by: am 09/29/2017 17:06 EMERGENCY ROOM REPORT DAVID KENRICK Radha 1 ALLERGIES ALLERGIES DATE TYPE / CODE NAME / CODE REACTION SEVERITY SOURCE Drug MORPHINE/000 LOC Severe (Severity [facility] [place] Allergy/4160 33532(RXNORM Modifier) [facility] 15402(SNOMED ) (Qualifier Repository CT) Value) ENCOUNTERS ENCOUNTERS ADMIT/DISCHARGE ACCOUNT ADMITTING ENCOUNTER LOCATION SOURCE NUMBER [facility] 09/27/2018 [id number] Ambulatory [address] ing:WOBLAB Repository 09/13/2018 [id number] Ambulatory [place] [facility]odi [facility] ing:LABSPEC Repository 05/30/2018/ [id number] SATHYA FINN [facility] [place] [address] 8 DO oom: ERBed: I [facility] Repository 05/16/2018/ [id number] YENY GARSIA Ambulatory [facility] 8 [facility] Repository 10/12/2017/ [id number] DR VINCE BERMUDEZ [facility] [place], [place] [address]om: ERBed: A [facility] Repository 09/30/2017/ [id number] DR VINCE BERMUDEZ [facility] [place] [address] 7 C oom: ERBed: C [facility] Repository 09/28/2017/ [id number] DR EFREN [facility] [place] [address] 7 ANGELO E oom: ERBed: [facility] Repository PAYERS PAYERS ENCOUNTER GUARANTOR PAYER SUBSCRIBER SOURCE 09/27/2018 KENRICK Garcia Primary LORRAINE [place] [id number] CR Insurance:MEDICAL WOODFFDOB: [address] [id number] [address]Zqm: (330) Number: Repository [phone] () [id number] Date:[id number] [address] [place] [id number]: 09/27/2018 Secondary NOT GIVENUNK [place] Insurance:SELF PAY [facility] Number: Effective Repository Date:2018-09-27 09/13/2018 KENRICK Garcia Primary LORRAINE Jodi [id number] CR Insurance:MEDICAL WINNABOWDOB: [address] [id number] [address]Dma: (330) Number: Repository [phone] () [id number] Date:[id number] [address] [place] [id number]: 09/13/2018 Secondary NOT GIVENUNK [place] Insurance:SELF PAY [facility] Number: Effective Repository Date:2018-09-13 05/30/2018 KENRICK Garcia Primary KENRICK ESPINOZAFFDOB: Insurance:MEDICAL WOODRUFFDOB: [facility] [id number] [address] [address]Gmr: Number: [facility], [id number] [place] [id number] () Date:Plan Name: 05/16/2018 KENRICK Garcia Primary KENRICK Dixon WOODRUFFDOB: Insurance:MEDICAL WOODRUFFDOB: [facility] [employer] MEDICARE [id number] [address] [address]Bmu: Number: [facility], [id number] [place] [id number] () Date:Plan Name: 10/12/2017 KENRICK Garcia Primary Insurance:GPA MARGOT GIVENSRUFFDOB: [employer] FELTONDOB: [facility] AUDIOMETRIC TECHNICIAN [id number] [facility] [address] OUTPATIEPolicy Number: [address] Repository [facility], [id number] [address] [place] [address], [place] Date:Plan Name:[facility] [id number]: () 09/30/2017 KENRICK Garcia Primary Insurance:GPA MARGOT ESPINOZAFFDOB: [employer] PENSION FELTONDOB: [facility] AUDIOMETRIC TECHNICIAN [id number] [facility] [address] OUTPATIEPolicy Number: [address] Repository [facility], [id number] [address] [place] [address], [place] Date:Plan Name:[facility] [id number]: () 09/28/2017 KENRICK Garcia Primary Insurance:IGNACIO ZALDIVAR: GROUP PENSION FELTONDOB: [facility] [id number] AUDIOMETRIC TECHNICIAN [id number] [address]UN OUTPATIEPolicy Number: 7 [facility] [address]UNIT Repository [address] [place] [address], [id number] [address] [place] [address] Date:Plan Name:[facility] [id number]: ()
== END ==
PROVIDERS: Referring Provider Obstetrics & Gynecology; Visit Provider Obstetrics & Gynecology
DX: Z32.01 Encounter for pregnancy test, result positive (principal); Z12.4 Encounter for screening for malignant neoplasm of cervix; Z11.3 Encounter for screening for infections with a predominantly sexual mode of transmission
CPT/HCPCS: 87491; 87591; 88175; G0145

== ENCOUNTER → 2018-09-27 11:33 | Outpatient (CLI) | payer OTHER, SELFPAY ==
[2018-09-27 12:23] LABS: Color, Urine Yellow (Yellow); Glucose, Dipstick Normal (Normal); Leukocyte Esterase-Dipstick 25 /ul (Negative); Nitrite-Dipstick Negative (Negative); Occult Blood-Urine Negative /ul (Negative); Protein-Dipstick Negative (Negative); Urine Bilirubin Dipstick Negative (Negative); Urine Clarity Sl. Cloudy (Clear); Urine Urobilinogen 1 mg/dl (Normal)
[2018-09-27 12:25] LABS: Absolute Lymphocyte Count 3.19 X10^3/ul (0.83-4.51); Absolute Neutrophil Count 8.7 X10^3/uL (2.0-7.7); Basophil% 0.3 % (0-1); Eosinophils% 0.4 % (0-5); Hematocrit 39.2 % (37-47); Hemoglobin 13.4 g/dl (12.0-15.0); Lymphocyte # 3.19 X10^3/ul (4.0); Lymphocyte % 23.6 % (19-41); Mean Corp Hgb Conc 34.2 g/gl (32-36); Mean Corpuscular Volume 87.9 fL (81-99); Monocyte# 1.47 X10^3/uL; Monocyte% 10.9 % (0-10); Neutrophil % 64.4 % (47-70); Platelet Count 457 K/mm3 (150-450); RBC Distribution Width CV 12.4 % (11.6-14.6); RBC Distribution Width SD 38.6 fl (35.1-43.9); Red Blood Count 4.46 M/mm3 (4.2-5.4); White Blood Count 13.5 K/mm3 (4.4-11.0)
[2018-09-27 12:26] LABS: Basophil# 0.04 X10^3/uL; Eosinophil# 0.05 X10^3/uL
[2018-09-27 12:35] LABS: POSITIVE COUNT NO; POSITIVE DIFFERENTIAL NO; POSITIVE MORPHOLOGY NO
[2018-09-27 12:37] LABS: Amphetamine Urine VISTA NEGATIVE (<1000 ng/mL); Barbiturate Urine VISTA NEGATIVE (< 200 ng/mL); Benzodiazepine Urine VISTA NEGATIVE (< 200 ng/mL); Cocaine Urine VISTA NEGATIVE (< 300 ng/mL); Ecstacy Urine VISTA NEGATIVE (< 500 ng/mL); Methadone Urine VISTA NEGATIVE (< 300 ng/mL); PCP Urine VISTA NEGATIVE (< 25 ng/mL); THC Urine VISTA POSITIVE (< 50 ng/mL); Vista UDS pH Range 6
[2018-09-27 12:58] LABS: Ketone-Dipstick 150 mg/dl (Negative)
[2018-09-27 13:03] LABS: Thyroid Stim Hormone (TSH) 0.83 uIU/mL (0.358-3.74)
[2018-09-27 13:37] LABS: HIV - WCH Non-Reactive (Nonreactive); Rubella IgG 25.8 IU/mL
[2018-09-28 10:01] LABS: Toxoplasma Gondii IgM < 3.0 AU/mL (0.0-7.9)
[2018-09-29 07:40] LABS: HEPATITIS B SURFACE AG Negative (Negative); Hep C Antibodies <0.1 s/co ratio (0.0-0.9); Toxoplasma Gondii IgG < 3.0 IU/mL (0.0-7.1); V-Zoster IgG (Immunity) 722 index (Immune >165); V-Zoster Virus Acute IgM < 0.91 index (0.00-0.90)
[2018-09-30 04:54] LABS: Prenatal RPR NONREACTIVE (NONREACTIVE)
--- OUTSIDE RECORDS SUMMARY | 2018-11-13 12:45 | XMS RPT_ITS ---
:1995 Author Organization OHIP Care Team Providers Name Role Phone NO, DOCTOR ON Consulting Unavailable GARLAND, YENY Primary Care Unavailable GARLAND, YENY Attending Unavailable GARLAND, YENY Admitting Unavailable SATHYA FINN DO Admitting Unavailable SATHYA FINN DO Attending Unavailable SATHYA FINN DO Primary Care Unavailable NO, DOCTOR ON Consulting Unavailable NO, DOCTOR ON Referring Unavailable OSIRIS HOLM Admitting Unavailable OSIRIS HOLM Attending Unavailable OSIRIS HOLM Primary Care Unavailable GARLAND, YENY Consulting Unavailable GARLAND, YENY Referring Unavailable PROVIDER, UNKNOWN Consulting Unavailable Sathya Florentino Attending Unavailable Primay Care Physicia, No Primary Care Unavailable Sathya Florentino Attending Unavailable Sathya Florentino Referring Unavailable Primay Care Physicia, No Primary Care Unavailable PROBLEMS PROBLEMS DATE TYPE CONDITION / CODE ATTENDING STATUS SOURCE 09/27/2018 Unknown Z34.81 - Encounter Sathya Florentino for supervision of Community other normal Hospital , first Repository trimester / Z34.81(ICD-10) 09/13/2018 Unknown Z12.4 - Encounter Sathya Florentino for screening for Community malignant neoplasm Hospital of cervix / Repository Z12.4(ICD-10) 09/13/2018 Unknown Z32.01 - Encounter Sathya Florentino for test, Community result positive / Hospital Z32.01(ICD-10) Repository 09/13/2018 Unknown Z11.3 - Encounter Sathya Florentino for screening for Community infections with a Hospital predominantly Repository sexual mode of transmission / Z11.3(ICD-10) 05/16/2018 Admitting Encounter for YENY GARSIA Active Chakayonatan [place] Diagnosis screening for [facility] malignant neoplasm Hospital of cervix / Repository Z124(ICD-10) 05/16/2018 Principle Encounter for YENY GARSIA Active Chakayonatan [place] Diagnosis screening for [facility] malignant neoplasm Hospital of cervix / Repository Z124(ICD-10) PROCEDURES PROCEDURES No Procedure Records FoundRESULTS RESULTS URINALYSIS Collected: 10/24/2018 Status: F Source: [place] 4:05 PM [facility] REPOSITORY TYPE CODE TESTS RESULT OUT OF REFERENCE UNITS RANGE LAB URINALYSIS (LOINC) URINALYSIS Result Comment: URINALYSIS LAB Specimen Type(LOINC) Specimen Type Clean catch LAB Color(LOINC) NORMAL: YELLOW Color p.yel LAB Clarity(LOINC) NORMAL: CLEAR Clarity clear LAB ph(LOINC) NORMAL: 5.0-8.0 ph 7 LAB Protein(LOINC) NORMAL: NEGATIVE Protein NEG LAB Glucose(LOINC) NORMAL: NORMAL Glucose NORM LAB Ketone(LOINC) NORMAL: NEGATIVE Ketone Abnormal 50 LAB Bilirubin(LOINC) NORMAL: NEGATIVE Bilirubin NEG LAB Blood(LOINC) NORMAL: NEGATIVE Blood NEG LAB Urobilinog(LOINC) NORMAL: NORMAL Urobilinog NORM LAB Sp [place](LOINC) NORMAL: 1.010-1.030 Sp [place] 1.010 LAB Nitrite(LOINC) NORMAL: NEGATIVE Nitrite NEG LAB Leukocytes(LOINC) NORMAL: NEGATIVE Leukocytes Abnormal 100 LAB Microscopic(LOINC ) Microscopic SEE BELOW Result Comment: MICROSCOPIC LAB Wbc(LOINC) 0-5/hpf Wbc 11-15 LAB Rbc(LOINC) 0-3/hpf Rbc NONE LAB Casts(LOINC) Casts NONE LAB Crystals(LOINC) Crystals NONE LAB Amorphous(LOINC) Amorphous NONE LAB Bacteria(LOINC) Bacteria 4+ LAB Epi Cells(LOINC) Epi Cells MANY LAB Mucous(LOINC) Mucous NONE LAB Yeast(LOINC) Yeast NONE Performed By: #### [id number] #### [place] [id number] URINALYSIS Collected: 10/24/2018 Status: F Source: [facility] 2:20 PM [facility] REPOSITORY TYPE CODE TESTS RESULT OUT OF REFERENCE UNITS RANGE LAB URINALYSIS (LOINC) URINALYSIS Result Comment: URINALYSIS LAB Specimen Type(LOINC) Specimen Void Type LAB Color(LOINC) NORMAL: YELLOW Color p.yel LAB Clarity(LOINC) NORMAL: CLEAR Clarity clear LAB ph(LOINC) NORMAL: 5.0-8.0 ph 6 LAB Protein(LOINC) NORMAL: NEGATIVE Protein NEG LAB Glucose(LOINC) NORMAL: NORMAL Glucose NORM LAB Ketone(LOINC) NORMAL: NEGATIVE Ketone NEG LAB Bilirubin(LOINC) NORMAL: NEGATIVE Bilirubin NEG LAB Blood(LOINC) NORMAL: NEGATIVE Blood NEG LAB Urobilinog(LOINC) NORMAL: NORMAL Urobilinog NORM LAB Sp [place](LOINC) NORMAL: 1.010-1.030 Sp [place] 1.015 LAB Nitrite(LOINC) NORMAL: NEGATIVE Nitrite NEG LAB Leukocytes(LOINC) NORMAL: NEGATIVE Leukocytes NEG LAB Microscopic(LOINC ) Microscopic NOT INDICATED Performed By: #### [id number] #### [place] [id number] BMP WITH EGFR Collected: 10/24/2018 Status: F Source: [facility] 2:20 PM [facility] REPOSITORY TYPE CODE TESTS RESULT OUT OF RANGE REFERENCE UNITS LAB BMP with eGFR(LOINC) BMP with eGFR Result Comment: BASIC METABOLIC PANEL LAB SODIUM(LOINC) 136 - 145 mmol/l SODIUM Low 135 LAB POTASSIUM(LOINC) 3.5 - 5.1 mmol/L Low POTASSIUM 3.3 LAB CHLORIDE(LOINC) 98 - 107 mmol/L CHLORIDE 99 LAB CO2(LOINC) 21.0 - mmol/L 31.0 CO2 23.7 LAB GLUCOSE(LOINC) 74 - 106 mg/dl GLUCOSE 91 LAB BUN(LOINC) 6 - 20 mg/dl BUN 9 LAB CREATININE(LOINC) 0.6 - 1.2 mg/dl CREATININE 0.7 LAB CALCIUM(LOINC) 8.6 - mg/dl 10.2 CALCIUM 9.4 LAB ANION GAP(LOINC) 10 - 20 mmol/L [...] OF AGE AND OLDER. Performed By: #### [id number] #### [facility],[address] [place] [address] URINE DRUG SCREEN Collected: 09/27/2018 Status: F Source: [place] (VISTA) 11:[address] [facility] REPOSITORY Order Comment: Comments: UNK IMMUNITY List [...] THC POSITIVE Performed By: #### L505.5000 #### [facility] [address] [place], [place], [id number] CBC W/DIFF, AUTOMATED Collected: 09/27/2018 Status: F Source: [place] 11:[address] [facility] REPOSITORY TYPE CODE TESTS RESULT OUT [...] Normal Absolute Lymph 3.19 Performed By: #### L100.0100 #### [facility] [address] [place], [address] URINALYSIS, ROUTINE Collected: 09/27/2018 Status: F Source: [place] (DIPSTICK) 11:[address] [facility] REPOSITORY Order Comment: Comments: UNK IMMUNITY How [...] VALUE VERIFIED. CALLED TO JUJU CHRISTIANSEN 09/27/18 1258 Fortino Garcia RESULTS READ BACK BY SAME. LAB [...] LEUK ESTERASE Performed By: #### L400.2010 #### [facility] [address] [place], [address] THYROID STIM HORMONE Collected: 09/27/2018 Status: F Source: [place] (TSH) 11:[address] [facility] REPOSITORY TYPE CODE TESTS RESULT OUT OF RANGE REFERENCE UNITS LAB L501.9520 0.358-3.74 uIU/mL Normal TSH 0.83 Performed By: #### L501.9520 #### [facility] [address] [place], [place], [address] RUBELLA IGG Collected: 09/27/2018 Status: F Source: [place] 11:[address] [facility] REPOSITORY Order Comment: Comments: UNK IMMUNITY TYPE CODE TESTS RESULT OUT OF RANGE REFERENCE UNITS LAB L509.4000 IU/mL Normal Rubella IgG 25.8 Result Comment: Antibody results Interpretation of Immune Status < 5 IU/ml Presumed Non-immune 5 - < 10 IU/ml Equivocal > or = 10 IU/ml Presumed Immune Performed By: #### L509.4000, L3890.6005 #### [facility] [address] [place], [place], [address] HIV - [facility] Collected: 09/27/2018 Status: F Source: [place] 11:[address] [facility] REPOSITORY Order Comment: Comments: UNK IMMUNITY TYPE CODE TESTS RESULT OUT OF RANGE REFERENCE UNITS LAB L3890.6005 Nonreactive Normal HIV - [facility] Non-Reactive Performed By: #### L509.4000, L3890.6005 #### [facility] [address] [place], [place], [address] T AND S-NO Collected: 09/27/2018 Status: F Source: [place] CHARGE W/PNP 11:[address] [facility] REPOSITORY Order Comment: Reason for Type AND Screen/Red Cells: Surgery? N TYPE CODE TESTS RESULT OUT OF RANGE REFERENCE UNITS LAB B10.0800 O Normal BLOOD POSITIVE TYPE GEL LAB B100.4050 Normal Ab SCREEN NEGATIVE GEL Performed By: #### B100.7550 #### [facility] [address] [place], [place], [address] TOXOPLASMA GONDII IGM Collected: 09/27/2018 Status: F Source: [place] 11:35 [facility] REPOSITORY TYPE CODE TESTS RESULT OUT [...] new specimen after three weeks. Performed at: [address] [id number] Medical Massage Therapist: Nakul Segura PhD, Phone: [phone] Performed By: #### L3400 #### [facility] (refer to report for specific site) refer to report for address and phone number HEPATITIS B SURFACE Collected: 09/27/2018 Status: F Source: [place] AG 11:[address] [facility] REPOSITORY Order Comment: Comments: UNK IMMUNITY TYPE CODE TESTS RESULT OUT OF RANGE REFERENCE UNITS LAB L3100.0400 Negative Normal HB Negative SURF AG Result Comment: Performed at: [address] [id number] Medical Massage Therapist: Nakul Segura PhD, Phone: [phone] Performed By: #### L3100.0390, L3100.0625, L3300.9950, L3400.0000, L3 #### [facility] (refer to report for specific site) refer to report for address and phone number HEPATITIS C ANTIBODIES Collected: 09/27/2018 Status: F Source: [place] 11:[address] [facility] REPOSITORY Order Comment: Comments: UNK IMMUNITY TYPE CODE TESTS RESULT OUT OF RANGE REFERENCE UNITS LAB L3100.0650 0.0-0.9 s/co ratio Normal HEP C AB <0.1 Result Comment: Negative: < 0.8 Indeterminate: 0.8 - 0.9 Positive: > 0.9 The CDC recommends that a positive HCV antibody result be followed up with a HCV Nucleic Acid Amplification test (840776). Performed By: #### L3100.0390, L3100.0625, L3300.9950, L3400.0000, L3 #### [facility] (refer to report for specific site) refer to report for address and phone number V-ZOSTER VIRUS ACUTE Collected: 09/27/2018 Status: F Source: [place] IGM 11:[address] [facility] REPOSITORY Order Comment: Comments: UNK IMMUNITY TYPE CODE TESTS RESULT OUT OF RANGE REFERENCE UNITS LAB L3300.9950 0.00-0.90 index Normal V ZOS IgM < 0.91 32123 Result Comment: Negative <0.91 Borderline 0.91 - 1.09 Positive >1.09 Performed By: #### L3100.0390, L3100.0625, L3300.9950, L3400.0000, L3 #### [facility] (refer to report for specific site) refer to report for address and phone number V-ZOSTER IGG Collected: 09/27/2018 Status: F Source: JODI (IMMUNITY) 11:[address] [facility] REPOSITORY Order Comment: Comments: UNK IMMUNITY TYPE CODE TESTS RESULT OUT OF RANGE REFERENCE UNITS LAB L3400.0000 Immune >165 index Normal VZOST IgG 722 87900 Result Comment: Negative <135 Equivocal 135 - [...] 09/27/2018 Status: F Source: [place] 11:[address] [facility] REPOSITORY Order Comment: Comments: UNK IMMUNITY TYPE [...] 09/27/2018 Status: F Source: [place] 11:[address] [facility] REPOSITORY TYPE CODE TESTS RESULT OUT OF REFERENCE UNITS RANGE LAB L700.5100 NONREACTIVE Normal RPR NONREACTIVE Performed By: #### L700.5100 #### [facility] [place], [address] CT/NG [facility] BY PCR Collected: 09/13/2018 Status: F Source: [place] 1:[address] [facility] REPOSITORY TYPE CODE TESTS RESULT OUT OF RANGE REFERENCE UNITS LAB L8200.2100 Negative Normal Chlam Negative Trac PCR LAB L8200.2200 Negative Normal NG by Negative PCR Performed By: #### L8200.1999 #### [facility] [address] [place], [address] PAP I-G W/RFX HRHPV Collected: 09/13/2018 Status: F Source: [place] 1:[address] [facility] REPOSITORY Order Comment: CYTOLOGY INFORMATION: - CLINICAL INFORMATION: - DATE LMP/MENOPAUSE: 07/30/18 LMP - COLLECTION VIAL: Thin Prep Vial - SUPERVISOR CELL ROOM SOURCE: CERVICAL/ENDOCERVICAL - COLLECTION TECHNIQUE: BRUSH/SPATULA Specimen Comment: [id number] Specimen Comment: Source.............Cervix;Endocervix Specimen Comment: LMP / Prev Treat...OHI=[id number] Specimen Comment: Other.............. Specimen Comment: No. of [...] PERFORM Comment Result Comment: Mariela Boss, Supervisory Turnaround Planner (ASCP) LAB L7400.2575 . Normal TEST METHOD [...] no HPV testing was performed. Performed at: [address] [id number] Medical Massage Therapist: Leilani Bettencourt MD, Phone: [phone] Performed By: #### L7400.0350 #### [facility] (refer to report for specific site) refer to report for address and phone number EMERGENCY REPORT Observed: 06/01/2018 Status: F Source: [place] 8:57 AM [facility] EMERGENCY ROOM REPORT NAME ACCOUNT SEX AGE ADMIT DISCHARGE PT MED. RECORD# NUMBER DATE DATE TYPE DAVID [id number] F 05/30/18 05/31/18 3 KENRICK Garcia [address] ROOM: ER DATE OF : 1995 DICTATING [...] 4. Anxiety. PLAN/DISPOSITION: She does have an BEHAVIORAL INTERVENTIONIST doctor that she sees, Dr. Florentino, in [place], so I have asked her to follow [...] Sathya Finn DO 05/30/18 23:24 JOB #: [id number] Transcribed By: am 05/31/18 13:10 Electronically signed by: E-Sign: Dr. Sathya Finn D.O. 06/01/18 08:57 Page 2 of 2 KENRICK JACKSON Emergency Room Report EMERGENCY REPORT Observed: 06/01/2018 Status: F Source: [facility] 8:56 AM [facility] EMERGENCY ROOM REPORT NAME ACCOUNT SEX AGE ADMIT DISCHARGE PT MED. RECORD# NUMBER DATE DATE TYPE DAVID [id number] F 22 05/30/18 05/31/18 3 KENRICK Garcia [id number] ROOM: ER DATE OF : 1995 DICTATING [...] motor or sensory deficits are noted. Hand crown and bridge dental lab technician are strong and symmetric. Skin is warm and dry. No diaphoresis or rash. Neurologic examination shows cranial nerves II through XII to be grossly intact. No focal deficits noted. The patient has normal speech. DIAGNOSTIC DATA: EKG done at 1916 hours shows normal sinus rhythm at a rate of [address]pm with no acute [address]-segment changes noted. [place] is approximately 60 degrees. EMERGENCY DEPARTMENT COURSE [...] Sathya Finn DO 05/30/18 19:39 JOB #: [id number] Transcribed By: judith 05/31/18 07:20 Electronically signed by: E-Sign: Dr. Sathya Finn D.O. 06/01/18 08:56 Page 2 of 2 KENRICK JACKSON Emergency Room Report CT ABDOMEN/PELVIS W Observed: 05/30/2018 Status: F Source: [place] 9:24 PM [place] [address] Patient: DAVIDAMPAROY Radha. Phone#: : 1995 Age: 22 Gender: F Pt. Type: ER Account: [id number] Location: 052 Ordering: SATHYA FINN Exam Date: 05/30/2018/21:12 Family Phys: NO DOCTOR Charge Code: 064245 Physician: [place] Order #: [id number] DLP Dose#: PROCEDURE: CT ABDOMEN/PELVIS WITH CONTRAST COMPARISON: [facility], CT, ABDOMEN/PELVIS W CON, 12/06/2012, 0:16. INDICATIONS: [...] 22 Gender: F Pt. Type: ER Account: [id number] Location: 052 Ordering: SATHYA FINN Exam Date: 05/30/2018/21:12 Family Phys: NO DOCTOR Charge Code: 880966 Physician: [place] Order #: [id number] DLP Dose#: PELVIC ORGANS: A 22 mm [...] 9:27 URINE Collected: 05/30/2018 Status: F Source: [facility] 8:40 PM [facility] REPOSITORY TYPE CODE TESTS RESULT OUT OF REFERENCE UNITS RANGE LAB NEGATIVE UR(LOINC) UR NEGATIVE LAB INTERNAL QC(LOINC) INTERNAL QC PASS LAB EXTERNAL QC DONE?(LOINC) EXTERNAL QC YES DONE? Performed By: #### [id number] #### [facility],[address] [place] [address] URINALYSIS Collected: 05/30/2018 Status: F Source: [place] 8:40 PM [facility] REPOSITORY TYPE CODE TESTS RESULT OUT OF [...] Urobilinog(LOINC) NORMAL: NORMAL Urobilinog NORM LAB Sp [place](LOINC) NORMAL: 1.010-1.030 Sp [place] 1.010 LAB Nitrite(LOINC) NORMAL: NEGATIVE Nitrite NEG [...] LAB Yeast(LOINC) Yeast NONE Performed By: #### [id number] #### [facility],[address] [place], [place] [id number] Observed: 05/30/2018 Status: F Source: [place] CULTURE URINE 8:40 PM [facility] REPOSITORY CULTURE URINE _URINE CULTURE_ M I C R O B I O L O G Y R E P O R T FINAL Antimicrobial Susceptibility and Organism Identification Report Specimen Number : [id number] Requested : 05/30/18 Specimen Source : URINE Collected : 05/30/18 20:40 [place] of Isolation : Emergency Room Received : 05/30/18 20:40 Requesting Physician : HUMA Patient/Specimen Tests and Comments Specimen Comments FINAL REPORT: URINE COLONY COUNT: [id number] CFU/CC >OR=TO 3 COLONY TYPES PROBABLE CONTAMINATION Tech : Source : URINE ID # : [id number] FINAL Report Date : / / : Collected : 05/30/18 20:40 06/02/18.0910.JLN. 06/01/18.1138.BKO. 06/02/18.0910.LATESHA.COMPLETE Performed By: #### [id number] #### [facility],[address] [place] [address] CBC Collected: 05/30/2018 Status: F [facility] PM [facility] REPOSITORY TYPE CODE TESTS RESULT OUT OF [...] 7.10 x10EE3/U L Neut # 5.50 LAB [place] #(LOINC) 0.20 - 1.00 x10EE3/U L [place] # High 1.10 LAB EO #(LOINC) 0.00 - 0.50 x10EE3/U L EO # 0.10 LAB Baso #(LOINC) 0.00 - 0.10 x10EE3/U L Baso # 0.10 LAB MANUAL DIFF(LOINC) MANUAL DIFF N/A LAB MORPHOLOGY(LOINC ) MORPHOLOGY N/A Result Comment: {CD] Performed By: #### [id number] #### [facility],[address] [place] [address] CMP WITH EGFR Collected: 05/30/2018 Status: F Source: [facility] 8:10 PM [facility] REPOSITORY TYPE CODE TESTS RESULT OUT OF RANGE REFERENCE UNITS LAB CMP with eGFR(LOINC) CMP with eGFR Result Comment: COMPREHENSIVE METABOLIC [...] OF AGE AND OLDER. Performed By: #### [id number] #### [facility],[address] [place] [address] SUPERVISOR CELL ROOM CYTOLOGY REPORT Observed: 05/16/2018 Status: F Source: [place] 11:07 AM [facility] REPOSITORY . Pathology Reports Accession: Collected Date/Time: Received Date/Time: Pathologist: [id number] 05/16/2018 11:07 EDT 05/17/2018 18:00 EDT MD FORTINO SANTOS Material Damage Appraiser Cytology Report SPECIMEN: Specimen Description: Liquid Prep Reflex ASCUS Specimen: Cervical/Endocervical Screening or Diagnostic: Screening RELEVANT HISTORY: LMP: 04-25-18 [id number] SPECIMEN ADEQUACY: SATISFACTORY FOR EVALUATION ENDOCERVICAL/TRANSFORMATIONAL ZONE COMPONENT PRESENT INTERPRETATION/RESULTS: ATYPICAL SQUAMOUS CELLS OF UNDETERMINED SIGNIFICANCE. ADJUNCTIVE TESTING: HIGH RISK HPV DNA TESTING ORDERED, REPORT TO FOLLOW UNDER SEPARATE COVER ORGANISMS: FUNGAL ORGANISMS MORPHOLOGICALLY CONSISTENT WITH FLEX SPECIES. Electronically Signed by Pathology report verified by [facility] Screened by: GL MGS Electronically signed by FORTINO SANTOS MD Sign-Out Date: 05/23/2018 15:47 Performing Lab: [facility], [address] [place] [address] Disclaimer The Pap test is a screening test for cervical cancer. As evidenced by published data, it is subject to both inherent false negative and false positive results. Your patient's results should be interpreted in context with pertinent clinical history including gynecological examination. Performed By: #### GYCR #### [place] [address] HPV Collected: 05/16/2018 Status: F Source: [place] 11:07 AM [facility] REPOSITORY Order Comment: Order placed by AP_HPV_REFLEX rule from [id number] TYPE CODE TESTS RESULT OUT OF RANGE [...] Interp HPVO Performed By: #### HPV #### [place] [address] CNCO Observed: 01/13/2018 Status: COMPLETED Source: [place] 12:00 AM [facility] REPOSITORY Letter Text [facility], [address], [address] [address] January 13, 2018 RE: Kenrick Jackson [address] [facility] [address] [facility] [address] 1995 Dear Parent/Guardian of Kenrick, We have tried to contact you in regards to your child's Need for Routine Physical Our efforts to reach you have been unsuccessful. Please call [phone] to coordinate your child's plan of care. Thank you and we look forward to talking with you. Sincerely, Primary [facility] Pediatrics [facility] ALLERGIES ALLERGIES DATE TYPE / CODE NAME / CODE REACTION SEVERITY SOURCE Drug MORPHINE/000 LOC Severe (Severity [place] Allergy/4160 45898(RXNORM Modifier) [facility] [address](SNOMED ) (Qualifier Repository CT) Value) ENCOUNTERS ENCOUNTERS ADMIT/DISCHARGE ACCOUNT ADMITTING ENCOUNTER LOCATION SOURCE NUMBER CLASS 10/24/2018/ [id number] [place], Emergency [address] [place] [address] 9 OSIRIS M oom: ERBed: A [facility] Repository 09/27/2018 [id number] Ambulatory Jodi Jodi 6 [facility] ing:WOBLAB Repository 09/13/2018 [id number] Ambulatory [place] [facility] ing:LABSPEC Repository 05/30/2018/ [id number] SATHYA FINN Emergency [address] [place] [address] 8 DO oom: ERBed: I [facility] Repository 05/16/2018/ [id number] YENY GARSIA Ambulatory [facility] 8 [facility] Repository PAYERS PAYERS ENCOUNTER GUARANTOR PAYER SUBSCRIBER SOURCE 10/24/2018 KENRICK Garcia [facility] WOODRUFFD[facility]: Insurance:MEDICAL WOODFFDOB: [facility] [id number] MUTUAL MEDICARE [id number] [facility] [address] [place]ository [place] [id number]: Number: [facility] [id number] Id [id number] () Date: 09/27/2018 KENRICK Garcia Primary LORRAINE [place] [id number] CR Insurance:MEDICAL SOUTH RANGEDOB: [address] [id number] [address]Xnw: (330) Number: Repository [phone] () [id number] Date:[id number] [address], [place] [address]UJ: 09/27/2018 Secondary NOT GIVENUNK Jodi Insurance:SELF PAY [facility] Number: Effective Repository Date:2018-09-27 09/13/2018 KENRICK Garcia Primary LORRAINE [place] [id number] CR Insurance:[facility]: [address] [id number] [address]Uov: (330) Number: Repository [phone] () [id number] Date:[id number] [address] [place] [address]KR: 09/13/2018 Secondary NOT GIVENUNK Jodi Insurance:SELF PAY [facility] Number: Effective Repository Date:2018-09-13 05/30/2018 KENRICK Dixon SOUTH RANGEDOB: Insurance:MEDICAL [facility]CL[facility]: [facility] [id number] [facility] [id number] [place] [address] [place]ository [place] [address]Xnx: Number: 515[place], [id number] Id [id number] () Date:Plan Name: 05/16/2018 KENRICK Dixon SOUTH RANGEDOB: Insurance:MEDICAL CORONARUFFDOB: [facility] [id number] M[employer]UAL MEDICARE [id number] [address] [place]ository [place] [address]Qzd: Number: [id number], [id number] Id [id number] () Date:Plan Name:P1
== END ==
PROVIDERS: Visit Provider Obstetrics & Gynecology
DX: Z34.81 Encounter for supervision of other normal pregnancy, first trimester (principal)
CPT/HCPCS: 36415; 80307; 81002; 84443; 85025; 86703; 86762; 86777; 86778; 86787; 86803; 87340

== ENCOUNTER → 2018-11-22 10:55 | Outpatient (CLI) | payer OTHER, SELFPAY ==
[2018-11-26 03:07] LABS: AFP MoM Value 0.96 (.); AFP Value-EIA 29.4 ng/mL (.); Comment Report (.); DIA MoM Value 0.82 (.); DIA Value-EIA 156.85 pg/mL (.); DSR (By Age) 1091 (.); DSR (Second Trimester) 10000 (.); Gestat. Age Based On As provided (.); Gestational Age 15.4 WEEKS (.); Maternal Age At EDD 23.4 yr (.); hCG MoM 0.59 (.); hCG Value 29365 mIU/mL (.)
== END ==
PROVIDERS: Visit Provider Obstetrics & Gynecology
DX: Z34.82 Encounter for supervision of other normal pregnancy, second trimester (principal)
CPT/HCPCS: 36415; 82105; 82677; 84702; 86336

== ENCOUNTER → 2019-02-14 | Outpatient (CLI) | payer OTHER, SELFPAY ==
[2019-02-14 13:52] LABS: Hematocrit 34.1 % (37-47); Hemoglobin 11.1 g/dl (12.0-15.0); Mean Corp Hgb Conc 32.6 g/gl (32-36); Mean Corpuscular Hgb 29.4 pg (27.0-32.0); Mean Corpuscular Volume 90.5 fL (81-99); Mean Platelet Vol. 11.3 fl (6.2-12.0); Platelet Count 333 K/mm3 (150-450); RBC Distribution Width SD 41.9 fl (35.1-43.9); Red Blood Count 3.77 M/mm3 (4.2-5.4); White Blood Count 16.6 K/mm3 (4.4-11.0)
[2019-02-14 13:53] LABS: Scan Indicated on CBC? Y/N NO
[2019-02-14 14:14] LABS: Glucose Challenge Gest 1H 50g 151 mg/dL (70-140)
== END | disposition home or self-care (01) ==
LOC: WOBLAB 10:44
PROVIDERS: Visit Provider Obstetrics & Gynecology
DX: Z34.82 Encounter for supervision of other normal pregnancy, second trimester (principal)
CPT/HCPCS: 36415; 82950; 85027

== ENCOUNTER → 2019-02-21 | Outpatient (CLI) | payer OTHER, SELFPAY ==
[2019-02-21 07:25] LABS: Glucose GTT-Gestation. Fasting 87 mg/dL (<105)
[2019-02-21 08:58] LABS: Glucose GTT-Gestational 1 Hr 144 mg/dL (<190)
[2019-02-21 09:46] LABS: Glucose GTT-Gestational 2 Hr 139 mg/dL (<165)
[2019-02-21 11:03] LABS: Glucose GTT-Gestational 3 Hr 91 L (<145)
== END | disposition home or self-care (01) ==
LOC: LAB 06:45
PROVIDERS: Referring Provider Obstetrics & Gynecology; Visit Provider Obstetrics & Gynecology
DX: O24.912 Unspecified diabetes mellitus in pregnancy, second trimester (principal); Z3A.00 Weeks of gestation of pregnancy not specified
CPT/HCPCS: 36415; 82951; 82952

== ENCOUNTER 2019-03-28 13:40 | Outpatient (CLI) | payer OTHER, SELFPAY ==
[2019-03-28 13:58] VITALS: BMI 29.7
--- NOTE | 2019-03-29 09:27 | OB.TRI.NOTE ---
History of Present Illness Date of Service: 03/28/19 Was patient seen by the physician?: No Reason For Visit: BLEEDING Date of Service: 03/28/19 Final MAEGAN: 05/13/19 Final MAEGAN Source: US <20 weeks Gestational age: 33 Weeks and 4 Days History of Present Illness: Reports painless vaginal bleeding while shopping today with decreased movement since. Physical Exam General: Alert, Oriented x3, Cooperative, No apparent distress Lungs: Clear to auscultation, Normal air movement Abdomen: Soft, Non Tender, Non-Distended, Gravid, Appropriate for Gestational Age Extremities:: No edema Neurological: Neuro grossly intact WASH BARREL LEADER: Normal external genitalia Estimated gestational size: Appropriate for gestational size Presentation: Cephalic Cervix Dilation (cm): 0 Station: -3 Effacement (%): 0 NST - FHR Rate Baby A Baseline: 140s Variability:: Moderate Accelerations:: 15 x 15 Decelerations:: None NST Reactive:: Yes, Appropriate for gestational age FHR Category:: Category I Uterine Activity:: irregular not felt by patient Impression/Plan Exam reveals no evidence of vaginal bleeding. No signs of PTL or PPROM. Reassuring heart rate pattern. Reassured.
--- NOTE | 2019-03-29 09:31 | OB.TRI.HP_ITS ---
History of Present Illness Date of Service: 03/28/19 Was patient seen by the physician?: No Reason For Visit: BLEEDING Date of Service: 03/28/19 Final MAEGAN: 05/13/19 Final MAEGAN Source: US <20 weeks Gestational age: 33 Weeks and 4 Days History of Present Illness: Reports painless vaginal bleeding while shopping today with decreased movement since. Physical Exam General: Alert, Oriented x3, Cooperative, No apparent distress Lungs: Clear to auscultation, Normal air movement Abdomen: Soft, Non Tender, Non-Distended, Gravid, Appropriate for Gestational Age Extremities:: No edema Neurological: Neuro grossly intact REFRIGERATION TECH: Normal external genitalia Estimated gestational size: Appropriate for gestational size Presentation: Cephalic Cervix Dilation (cm): 0 Station: -3 Effacement (%): 0 NST - FHR Rate Baby A Baseline: 140s Variability:: Moderate Accelerations:: 15 x 15 Decelerations:: None NST Reactive:: Yes, Appropriate for gestational age FHR Category:: Category I Uterine Activity:: irregular not felt by patient Impression/Plan Exam reveals no evidence of vaginal bleeding. No signs of PTL or PPROM. Reassuring heart rate pattern. Reassured.
== END 2019-03-28 15:15 | disposition home or self-care (01) ==
LOC: WPOUT 13:42 → WP 13:43
PROVIDERS: Referring Provider Obstetrics & Gynecology; Visit Provider Obstetrics & Gynecology
DX: Z03.79 Encounter for other suspected maternal and fetal conditions ruled out (principal); Z3A.33 33 weeks gestation of pregnancy
CPT/HCPCS: 59025; 59050; 99218; G0378

== ENCOUNTER → 2019-04-11 | Outpatient (CLI) | payer OTHER, SELFPAY ==
[2019-03-28 13:58] VITALS: BMI 29.7
== END | disposition home or self-care (01) ==
LOC: LABSPEC 14:15
PROVIDERS: Visit Provider Obstetrics & Gynecology
DX: Z36.85 Encounter for antenatal screening for Streptococcus B (principal)
CPT/HCPCS: 87081

== ENCOUNTER 2019-04-24 06:40 | Outpatient (CLI) | payer OTHER, SELFPAY ==
[2019-04-24 07:10] VITALS: BMI 32.9
[2019-04-24 07:42] LABS: ROM Internal Control Test YES-OK TO RESULT pt. (Internal QC); ROM Patient Test Negative (Negative)
--- NOTE | 2019-04-25 08:15 | OB.TRI.NOTE ---
History of Present Illness Date of Service: 04/24/19 Was patient seen by the physician?: No Reason For Visit: R/O LABOR Date of Service: 04/24/19 Final MAEGAN: 05/13/19 Final MAEGAN Source: US <20 weeks Gestational age: 37 Weeks and 2 Days History of Present Illness: 23 yo - female at 37 2/7 wk with possible SROM. Here for evaluation. Allergies morphine Allergy (Verified 04/24/19 07:26) Anaphylaxis alprazolam [From Xanax] Adverse Reaction (Verified 04/24/19 07:26) Other Laboratory Studies: Laboratory Tests 04/24/19 Range/Units 07:05 Vag Amniotic Fld Detect Negative (Negative) NST - FHR Rate Baby A Baseline: 130-140s with avg variability accels to 160s Variability:: Moderate Accelerations:: 15 x 15 Decelerations:: None NST Reactive:: Yes, Appropriate for gestational age FHR Category:: Category I Uterine Activity:: UCs q 4-6 with some irritability also noted. Impression/Plan 37 2/7 wk false labor ROM test NEGATIVE. Cervix sl change from last ofc exam. Observed, walked, no further change. Home Keep next ofc appt as planned. Return for evaluation if inc s/sx of labor.
== END 2019-04-24 09:25 | disposition home or self-care (01) ==
LOC: WPOUT 07:11 → WP 04-25 13:29
PROVIDERS: Referring Provider Obstetrics & Gynecology; Visit Provider Obstetrics & Gynecology
DX: O47.1 False labor at or after 37 completed weeks of gestation (principal); Z3A.37 37 weeks gestation of pregnancy
CPT/HCPCS: 59025; 59050; 84112; 99218; G0378

== ENCOUNTER → 2019-05-01 | Outpatient (CLI) | payer OTHER, SELFPAY ==
[2019-04-24 07:10] VITALS: BMI 32.9
[2019-05-01 16:17] LABS: AST(SGOT) 13 U/L (15-37); Alanine Aminotransfer ALT/SGPT 12 U/L (13-56); Albumin, Serum 2.8 g/dL (3.2-5.0); Alkaline Phosphatase 191 U/L (45-117); Bilirubin, Direct < 0.05 mg/dL (0.00-0.30); Globulin 4.5 g/dL (2.2-4.2); Protein, Total 7.3 g/dL (6.4-8.2)
== END | disposition home or self-care (01) ==
LOC: WOBLAB 14:23
PROVIDERS: Visit Provider Obstetrics & Gynecology
DX: O26.899 Other specified pregnancy related conditions, unspecified trimester (principal); L29.9 Pruritus, unspecified; Z3A.00 Weeks of gestation of pregnancy not specified
CPT/HCPCS: 36415; 80076

== ENCOUNTER 2019-05-02 03:20 | Inpatient (IN) | payer OTHER, SELFPAY ==
[2019-05-02] VITALS (8 sets, daily range): BP systolic 118–135; BP diastolic 64–75; PULSE 78–116; RESP 16–18; TEMP 37.1–37.7; O2SAT 92–98; BMI 33.3
[2019-05-02 03:19] LABS: ROM Internal Control Test YES-OK TO RESULT pt. (Internal QC); ROM Patient Test POSITIVE (Negative)
[2019-05-02] MEDS: Lactated Ringers 1,000 ML 50 ML IV ×4 (03:45→18:06)
[2019-05-02 04:24] LABS: Absolute Lymphocyte Count 2.69 X10^3/ul (0.83-4.51); Absolute Neutrophil Count 9.4 X10^3/uL (2.0-7.7); Basophil# 0.02 X10^3/uL; Basophil% 0.1 % (0-1); Eosinophil# 0.27 X10^3/uL; Eosinophils% 1.9 % (0-5); Hematocrit 30.4 % (37-47); Hemoglobin 9.7 g/dl (12.0-15.0); Lymphocyte # 2.69 X10^3/ul (4.0); Lymphocyte % 19.3 % (19-41); Mean Corp Hgb Conc 31.9 g/gl (32-36); Mean Corpuscular Volume 87.9 fL (81-99); Mean Platelet Vol. 12.4 fl (6.2-12.0); Monocyte# 1.42 X10^3/uL; Monocyte% 10.2 % (0-10); Neutrophil # 9.44 X10^3/uL (2.7-7.7); Neutrophil % 67.6 % (47-70); Platelet Count 282 K/mm3 (150-450); RBC Distribution Width SD 44.5 fl (35.1-43.9); Red Blood Count 3.46 M/mm3 (4.2-5.4)
[2019-05-02 04:28] LABS: POSITIVE COUNT NO; POSITIVE DIFFERENTIAL NO; POSITIVE MORPHOLOGY NO
[2019-05-02 06:56] LABS: Amphetamine Urine VISTA NEGATIVE (<1000 ng/mL); Barbiturate Urine VISTA NEGATIVE (< 200 ng/mL); Benzodiazepine Urine VISTA NEGATIVE (< 200 ng/mL); Cocaine Urine VISTA NEGATIVE (< 300 ng/mL); Ecstacy Urine VISTA NEGATIVE (< 500 ng/mL); Methadone Urine VISTA NEGATIVE (< 300 ng/mL); PCP Urine VISTA NEGATIVE (< 25 ng/mL); THC Urine VISTA POSITIVE (< 50 ng/mL); Vista UDS pH Range 5
[2019-05-02] MEDS: Ondansetron 4 MG/2 ML Vial IV ×3 (06:59→19:49)
[2019-05-02] MEDS: 0.9% Saline Lock 10 ML Syringe IV (06:59)
--- NOTE | 2019-05-02 07:56 | HP.PCM_ITS ---
History and Physical Date of Admission: 05/02/19 OB HISTORY AND PHYSICAL EXAMINATION History of this : 23 yo female Ab0 with EDC 05/13/2019 by 7 weeks 3 days Ultrasound, presents to Labor and Delivery with CC of SROM at 0200 this am. +UCs. 38 3/7 wk care remarkable for : O positive Rubella Immune. GBS negative. 1.) abnormal Glucola 151 -- 3 hr GTT wnl 2.) Marijuana use throughout . Positive tox screen at admission. creative services designer consult. 3.) Anemia . rx sent in for iron. Pertinent Past Medical History: None. Allergies: Xanax , morphine Medications: During - Bactrim DS 800 mg-160 mg tablet; Zofran 4 mg tablet; Colace 100 mg capsule; Gummy 400 mcg-35 mg-25 mg-5 mg chewable ; ferrous gluconate 324 mg (37.5 mg iron) tablet; hydroxyzine HCl 50 mg tablet Review of Systems: Gush of fluid. +UCs. PHYSICAL EXAMINATION General Appearance: 23 yo female very uncomfortable w/ UCs. Breathing nitrous heavily. Hands and knees for back pain, then to dorsal supine for exam. Vital Signs: AF, VSS Heart: RRR without rubs or gallops Lungs: CTA x 2 Breasts: deferred Abdomen: gravid Pelvis: Cervix: 3/100/-2 midposition. IUPC and scalp lead placed. Using nitrous for cervix check Presentation: cephalic Station: Fetus: Size: AGA Movement: present Heart: 130-140s intermittent tracing due to maternal movement., ? late at approx 7 am. UCs q 3-4 mins Impression /Plan: Intrauterine . 38 4/7 wk SROM and early labor. Admit. Plans nitrous for now. Pitocin augmentation prn. Watch progress, descent Social service consult for drug use in . See Progress Notes for Changes: Physician's Signature: Date: H and P Generated a time of patient admission to hospital Brit Rodriguez MD 05/02/19 0800
[2019-05-02] MEDS: Oxytocin 30 units/NS 500 ml 30 UNITS/500 ML IV.SOLN IV (08:54)
--- NOTE | 2019-05-02 11:56 | PCM.PN.BLA ---
Progress Note 38 3/7 WK SROM. Labor Very comfortable w/ epidural AVSS pitocin was at 2 mIU/min. Turned off IFM: 140s avg variability Accels early decels , occasional late. Overall very reassuring EFM UCs q 2-3 min CX: lip to one side per last RN check. A/P: 38 3/7 wk SROM. Labor. Labor down. Begin pushing PRN. Anticipate .
--- NOTE | 2019-05-02 17:32 | PCM.PN.BLA ---
Progress Note 38 1/2 wk EGA SROM. Labor. Epidural in place, more comfortable. Taking a break. Complete since approx 2 pm EFM reassuring. UCS noted. A/P: 38 1/2 wk Continue pushing. Watch descent. ? OP. Caput noted. Vacuum likely pop off, but may consider trial of vacuum with pushing.
[2019-05-02] MEDS: CHLORHEXIDINE GLUC 2% CLOTH 1 EACH TOWELETTE TOPICAL (19:50)
--- NOTE | 2019-05-02 20:09 | PN_ITS ---
Progress Note LABOR AFTER SROM Complete since 2 pm. Pushing off and on, with break for dinner/ labor liquids. AVSS EFM reassuring. UCs noted CX: -1 no further descent with pushing, Significant caput. Narrow pelvis. A/P: 38 + wk SROM labor all day. Complete since 2 pm. no further descent. Recommend primary C/S Allergy (anaphylactic rxn) to Morphine. Advised: tylenol, Ibuprofen or Aleve on schedule. States had kidney stone and RX given for that which she was able to tolerate. will contact [facility] re meds given. Plan for C/S under epidural dosed to surgical levels.
[2019-05-02] MEDS: Sodium Citrate/Citric Acid 30 ML UDC PO (20:10)
--- NOTE | 2019-05-02 20:27 | PCM.PN.BLA ---
Progress Note Unsuccessful at determining what other PO pain med pt may have had in past. Pt's mother thinks she has had Darvocet prior and did OK with that. May have had some N/V Darvocet no longer available. Will try Percocet / OxyIR. Continue to try to get prior med records from kidney stone. pt states med ONLY given in hospital, no outpt RX given. Unable to contact outpt pharmacy [facility] re prior meds as did not fill there.
[2019-05-02] MEDS: Cefazolin 2 GM in 0.9% Normal Saline 100 ML IV (20:30)
[2019-05-02] MEDS: Lactated Ringers 1,000 ML 100 ML IV (20:57)
[2019-05-02] MEDS: Oxytocin 30 units/NS 500 ml 30 UNITS/500 ML IV.SOLN 167 UNITS IV (20:58)
[2019-05-02] MEDS: Methylergonovine 0.2 MG/ML Ampul IM (21:01)
--- NOTE | 2019-05-02 21:42 | PCM.OPRPT ---
Report of Operation Date of Procedure: 05/02/19 Pre-Operative Diagnosis: 38 4/7 wk SROM. Induction. CPD Post-Operative Diagnosis: Same Surgery/Procedure Performed:: Primary C section Description of Surgical Findings:: Whitlock viable male VTX with significant caput, asynclitic. Ap 8/9 Weight 8# 9 oz. Normal uterus, fallopian tubes and ovaries bilaterally. Placenta anterior. cryptographic machine operator: Nicolas Bee Type of Anesthesia:: Epidural Anesthesiologist: Sheila Márquez MD Specimen's removed: Placenta Drains: Pena pink tinged urine Estimated Blood Loss (mL): 600 Fluids Replaced: LR Description of Procedure: Narrative account: After the risks, benefits and alternatives of the procedure were reviewed with the patient, informed consent was obtained. The patient was taken to the Operating room with an IV running , a Pena catheter in place and epidural catheter in place. She was positioned on the operating table and the epidural was dosed to surgical levels. She was prepped and draped , including a vaginal vault prep, in the usual sterile fashion. Once the epidural was deemed adequate, a Pfannenstiel skin incision was created using the knife. The incision was carried down to the rectus fascia using the knife. The fascia was nicked in the midline. The fascial incision was extended bilaterally using curved Jean Baptiste scissors. The superior aspect of the fascial incision was grasped with John clamps and tented up and the underlying rectus abdominal muscles were dissected free. In a similar manner, the inferior aspect of the facial incision was grasped with John clamps tented up and the underlying rectus abdominal muscles were dissected free. The rectus abdominis muscles were in the midline and the peritoneum was identified and entered by blunt dissection high in the incision. The peritoneum was stretched laterally and a bladder blade was inserted. A bladder flap was created along the lower uterine segment with Metzenbaum scissors . The uterine incision was then created using Metzenbaum scissors. The operators fingertips were used to extend the uterine incision by blunt dissection in a caudad- cephalad orientation . Clear fluid was noted at amniotomy. The vertex was then delivered atraumatically through the incision. The OP and nares were bulb suctioned on the abdomen. The shoulders delivered easily . The cord clamped x two and cut. And the infant was handed off to the nurse awaiting delivery after briefly showing him to his parents. The baby had good tone and a spontaneous vigorous cry. The placenta was then delivered. The uterus was exteriorized and cleared of clots and debris . The uterine incision was repaired with 1 Vicryl in a running locked fashion. A second imbricating layer of 1 Monocryl was placed. Bovie cautery was used to treat any bleeding areas . Excellent hemostasis was noted. At this point the uterus was returned to the abdominal cavity. The gutters were cleared of clots and debris and the incision at the uterus was inspected. Excellent hemostasis was noted. Thalia was dusted over the uterine incision for continued hemostasis. The peritoneal edges and rectus abdominis muscles were reapproximated in the midline with a series of vertical mattress stitches of 1 Vicryl. Excellent hemostasis was noted at the subfascial space Thalia was dusted over this layer for hemostasis. The fascia was closed in a running nonlocked fashion with a Stratofix. The Subcutaneous fatty tissue was Bovie cauterized as needed for hemostasis. Thalia was applied to prevent seroma formation. This layer was then reapproximated in a single layer closure of running 3-0 Vicryl to eliminate space. The skin edges were closed in a Subcuticular stitch of 4-0 Monocryl. The incision was cleansed. Cavilon, Steristrips, and Mepilex dressing were applied to the skin . The patient was then transferred to the recovery room bed in stable condition after tolerating the procedure well. Sponge, lap, needle and instrument counts correct times two. Medications given preop and intraoperatively included: Ancef 2 gm IV one were given alterations workroom clerk to the operating room. The patient also received Pitocin given IV after cord clamp, and Toradol 30 mg IV times one. Patient was also given Dilaudid IV in the OR , which she tolerated well. For a complete listing of medications given preop and intraoperatively, please see the anesthesia record. Delivery Classification: FERNANDO Final MAEGAN: 05/12/19 Final MAEGAN Source: US <20 weeks Gestational age: 38 Weeks and 4 Days [place] doctor who attended delivery (if requested by OB): Gregory Crawford Indications: CPD Indications for : Failure of Descent Amniotic Membrane Rupture Type: Spontaneous Amniotic Fluid Description: Clear Placenta Disposition: [facility] Drain: Pena to straight drain Fluids Replaced: LR Cord Entanglement: None Cord Vessel Description: 3 Vessels Infant Gender: Male (1 minute): 8 (5 minute): 9 Delayed cord clamping: No Pre-op Antibiotic Given: Ancef 2 grams IV x1 Complications: None - Admit VTE Documentation VTE Present on Admission: No VTE Mechan Device Prophylaxis: SCD's VTE Pharm Prophylaxis ordered?: No
[2019-05-03] VITALS (11 sets, daily range): BP systolic 112–136; BP diastolic 64–81; PULSE 78–106; RESP 16–18; TEMP 36.6–37.1; O2SAT 94–96
[2019-05-03] MEDS: 0.9% Saline Lock 10 ML Syringe IV (01:31)
[2019-05-03] MEDS: Lactated Ringers 1,000 ML 100 ML IV (01:31)
[2019-05-03] MEDS: HYDROmorphone 0.5 MG/0.5 ML SYRINGE IV ×2 (01:33→06:11)
[2019-05-03] MEDS: Ketorolac 30 MG/ML Syringe IV ×4 (03:23→21:17)
[2019-05-03 07:09] LABS: Hemoglobin 8.7 g/dL (12.0-15.0); Mean Corp Hgb Conc 32.2 g/dL (32-36); Mean Corpuscular Hgb 28.9 pg (27.0-32.0); Mean Corpuscular Volume 89.7 fL (81-99); Mean Platelet Vol. 12.1 fl (6.2-12.0); Platelet Count 215 K/mm3 (150-450); RBC Distribution Width CV 13.8 % (11.6-14.6); RBC Distribution Width SD 45.1 fl (35.1-43.9); Red Blood Count 3.01 M/mm3 (4.2-5.4); White Blood Count 18.2 K/mm3 (4.4-11.0)
--- NOTE | 2019-05-03 07:33 | PN.OBGYN_ITS ---
Subjective: POD#1 Primary C/S for CPD. Has O2 back. Significant guarding for exam. Multiple questions, anxious. Nursing. Has not tried much po yet. Waiting until FOB wakes up to order breakfast. C/O severe pain at present. Wincing intermittently with abdominal crampiness (gas?) Neg flatus. - Physical Exam General: Alert, Oriented x3, Cooperative HEENT: Atraumatic, EOMI Neck: Supple Abdomen: Soft, Non-Distended - fundus firm and tender c/w postop status. Skin: Incision - CDI. Mepilex in place. Neurological: Cranial nerves II-XII grossly intact Psych/Mental Status: Agitated, Anxious Vital Signs Temp Pulse Resp BP Pulse Ox 98.1 F 102 H 18 122/72 H 4 05/03/19 06:20 05/03/19 06:20 05/03/19 06:20 05/03/19 06:20 05/03/19 06:20 Oxygen Delivery Method Nasal Cannula Weight: 88.2 kg Body Mass Index (BMI) 33.3 Intake and Output for Last 24 Hours 05/01/05 05//05/03/19 23:59 23:59 23:59 Intake Total 1461 / 1461 Output Total 525 / 925 1150 / 1150 Balance -525 / -79 311 / 311 Laboratory Tests Past 24 Hrs // 07:00 WBC 18.2 H RBC 3.01 L Hgb 8.7 L Hct 27.0 L MCV 89.7 MCH 28.9 MCHC 32.2 RDW Std Deviation 45.1 H RDW Coeff of Connor 13.8 Plt Count 215 MPV 12.1 H Medical Necessity - Tobacco Use Smoking Status: Former smoker Assessment/Plan POD#1 Primary C/S for CPD. failure to descend with 6+ hr after complete Increase diet and activity as tolerated. Begin po meds. Cough and deep breathe, IS. S/L IV for continued toradol. D/C zohu for voiding trial later today. Continue ice pack prn to swollen labia. #1) Anxiety -- allergic rxn to Xanax prior. Nursing. Supportive care , no med planned for this. #2) hypoxia by pulse ox. O2 back on. Pt advised C&DB, IS. to prevent atelectasis, improve Oxygenation. Prevent pneumonia. #3) Pain control. CC of severe pain now. Toradol q 6 hr for 48 hr postop. Begin scheduled dose of Tylenol 1000 mg q 8 hrs. Has been getting dilaudid IV. Encouraged to change to PO OxyIR for more extended pain relief. gas pain also. Mylicon for this and ambulation. May try abdominal binder. Continue care. professional services specialist consult for h/o marijuana positive tox screen, also with her anxiety issues.
[2019-05-03] MEDS: oxyCODONE 5 MG Tablet PO ×5 (07:54→22:22)
--- NOTE | 2019-05-03 11:09 | NURSING ---
0815 pt oob up to chair pt painful gait steady
--- NOTE | 2019-05-03 11:10 | NURSING ---
0840 pulse ox maintaining 94-95 with O2 off and pt up in chair
--- NOTE | 2019-05-03 13:00 | NURSING ---
pt ambulate to br to sit on toilet; pt passing gas on toilet
[2019-05-03] MEDS: Prenatal Vits Tablet 1 TABLET PO (15:09)
[2019-05-03] MEDS: Ferrous Sulfate 325 MG Tablet PO ×2 (15:09→18:50)
[2019-05-03] MEDS: Acetaminophen 500 MG Tablet 1000 MG PO ×2 (15:09→22:22)
--- NOTE | 2019-05-03 16:13 | NURSING ---
1500 pt had a breakdown and started sobbing d/t to many visitors and inability to rest; pt states that she is so tired and just needs sleep; pt sobbing so much that she c/o difficulty breathing pulse ox drops from 95 to 90 pt hyperventilating; O2 placed back on pt and pulse ox rises back to 94-95 % pt given cool clothes for head and reassurance given to calm pt down; pt wants to leave O2 on for now; Note put on door for no visitors at this time pt sleeping. pulse ox on to continue monitoring; pt feeling better will try to sleep; infant taken to nursery.
--- NOTE | 2019-05-03 16:17 | CPS ---
Nurse started I.S. with patient.
--- NOTE | 2019-05-03 17:06 | RAD_ITS ---
STUDY: X-RAY CHEST REASON FOR EXAM: Female, 23 years old. Low O2 . TECHNIQUE: PA and lateral chest. COMPARISON: None. FINDINGS: Increased pulmonary markings in the lower lobes bilaterally. There is no demonstrated pleural abnormality. Normal size heart. Normal mediastinum and jimbo. Normal visualized pulmonary arteries. Normal visualized aortic arch and descending thoracic aorta. Normal visualized thoracic spine. Normal visualized ribs, clavicles, and shoulders. There is no demonstrated abnormality of the visualized soft tissue structures of the upper abdomen. RAD/Chest PA and Lateral IMPRESSION: Bilateral lower lobe pneumonia. Electronically Signed: Shawnee Cardoza MD at 19:33 EDT Tel , Service support ,
[2019-05-03 18:28] LABS: Hematocrit 25.9 % (37-47); Hemoglobin 8.3 g/dL (12.0-15.0); Mean Corpuscular Hgb 28.6 pg (27.0-32.0); Mean Corpuscular Volume 89.3 fL (81-99); Mean Platelet Vol. 12.5 fl (6.2-12.0); Platelet Count 221 K/mm3 (150-450); RBC Distribution Width SD 45.1 fl (35.1-43.9); White Blood Count 19.9 K/mm3 (4.4-11.0)
--- NOTE | 2019-05-03 18:45 | NURSING ---
1750 pts O2 remained 95 % while sleeping with O2 on per pt request; when pt was awakened we took O2 off and pts O2 sat dropped to 88-92%. dr simeon called and made aware orders received. pt to xray at 1810 cbc drawn and sent
--- NOTE | 2019-05-03 18:47 | NURSING ---
1829 when pt returned from xray O2 sat 95% on room air so O2 was left off and pulse ox remains on pt now sitting in chair. 1834 dr simeon made aware of cbc results
--- NOTE | 2019-05-03 21:19 | PCM.PN.BLA ---
Progress Note POD#1 Primary C/S Periods of hypoxia requiring O2 NC. AVSS with elevated WBCs. CXR: Bilateral lower lobe pneumonia. A/P: advised nurse and pt of finding. Nursing. Starting on Azithromycin 500 mg po first dose, then 250 mg po daily for 5 d No comorbidities.
[2019-05-03] MEDS: Enoxaparin 40 MG/0.4 ML Syringe SC (22:22)
[2019-05-03] MEDS: Azithromycin 250 MG Tablet 500 MG PO (22:22)
[2019-05-04] VITALS (11 sets, daily range): BP systolic 114–143; BP diastolic 72–84; PULSE 105–128; RESP 16–20; TEMP 36.1–37.3; O2SAT 90–96
[2019-05-04] MEDS: Ketorolac 30 MG/ML Syringe IV (03:37)
[2019-05-04] MEDS: 0.9% Saline Lock 10 ML Syringe IV (03:38)
[2019-05-04] MEDS: Albuterol 2.5 MG/3 ML VIAL.NEB. INHALATION (03:44)
--- NOTE | 2019-05-04 04:55 | CT_ITS ---
STUDY: CTA CHEST REASON FOR EXAM: Female, 23 years old. Hypoxia. Recent RADIATION DOSAGE (If Supplied By Facility): CTDIvol = ( 13.20 ) mGy, DLP = ( 315.33 ) mGycm TECHNIQUE: The examination was performed with the intravenous administration of 100 IV Isovue 370. Post-processing of the angiographic images was performed, with multiplanar reformation and 3D reconstruction. Individualized dose optimization techniques were used for this CT. COMPARISON: None. FINDINGS: TRACHEA, THYROID, ESOPHAGUS: No tracheomalacia,stricture or wall thickening. Thyroid and esophagus are normal CARDIOVASCULAR SYSTEM: The thoracic aorta is normal with no focal aneurysm or dissection. There are no abnormal calcifications/metallic densities at the aortic root. The pulmonary trunk and the left and right pulmonary arteries and their lobar and segmental branches all fail to show any abnormal and persistent filling defects to indicate the presence of pulmonary embolism. The heart is normal in size but there is central vascular congestion. LINA AND LYMPH NODES: No hilar masses and no mediastinal, hilar, axillary or supraclavicular adenopathy LUNGS, LOW-ATTENUATION: No traction bronchiectasis, honeycombing,emphysema, lung cysts or cavitations LUNGS, HIGH ATTENUATION: Groundglass opacities in both lower lobes. Increased interstitial markings in the lung bases. LUNGS, MOSAIC/CRAZY PAVING: Not evident PLEURA AND CHEST WALL: Small pleural effusions UPPER ABDOMEN: Unremarkable. CT/CTA Chest W/WO Contrast IMPRESSION: Interstitial edema. Bilateral lower lobe groundglass opacities consistent with pulmonary edema or pneumonia. Central vascular congestion Electronically Signed: Guillermo Najera MD at 6:26 EDT Tel , Service support ,
--- NOTE | 2019-05-04 05:02 | PCM.PROGNOTE ---
Subjective: POD#2 Primary C/S Called to see patient 2/2 inc O2 need. Pt just up to bathroom States she feels wiped out now. no h/o pulmonary disease. Denies SOB. Significant anxiety and states had been on many medications for this in the past. Xanax caused hallucinations. The one that worked best for her : Hydroxyzine. Objective: sitting up in bed, O2 Nasal cannula in place. - Physical Exam General: Alert, Oriented x3, Cooperative HEENT: Atraumatic, EOMI Neck: Supple Lungs: Diminished - Diminished lung sounds bilateral lower lobes, otherwise moving air well. Cardiovascular: Regular rate, Regular Rhythm Psych/Mental Status: Anxious Vital Signs Temp Pulse Resp BP Pulse Ox 98.5 F 115 H 18 123/81 H 90 05/03/19 21:10 05/04/19 03:45 05/04/19 03:45 05/03/19 21:10 05/04/19 03:45 Oxygen Flow Rate (L/min) 3 Oxygen Delivery Method Nasal Cannula Weight: 88.2 kg Body Mass Index (BMI) 33.3 Intake and Output for Last 24 Hours 05/02/05 05//05/04/19 23:59 23:59 23:59 Intake Total 2910 / 2910 Output Total 525 / 925 3900 / 3900 Balance -525 / -79 -990 / -990 Laboratory Tests Past 24 Hrs 05/03/05/03/19 07:00 17:55 WBC 18.2 H 19.9 H RBC 3.01 L 2.90 L Hgb 8.7 L 8.3 L Hct 27.0 L 25.9 L MCV 89.7 89.3 MCH 28.9 28.6 MCHC 32.2 32.0 RDW Std Deviation 45.1 H 45.1 H RDW Coeff of Connor 13.8 14.0 Plt Count 215 221 MPV 12.1 H 12.5 H Medical Necessity - Tobacco Use Smoking Status: Former smoker Assessment/Plan POD#2 Primary C/S for CPD. failure to descend with 6+ hr after complete #1) Anxiety -- allergic rxn to Xanax prior. Needs prn med for sx. States multiple meds in past and nothing good but Hydroxyzine. PRN Hydroxyzine #2) hypoxia by pulse ox. O2 back on. Pulmonary toilet initiated yesterday and prn Albuterol but still with inc O2 need at night and with rest. Also desats if increased anxiety (uncertain etiology? C&DB, IS. to prevent atelectasis CXR dx last pm with bilateral lower lobe pneumonia. Levaquin started this am. No cough no respiratory sx. Begin scheduled respiratory treatments. #3) Pain control. continue Toradol burning her IV : stop Toradol. Continue other po meds. Continue care. surgical services assistant consult for h/o marijuana positive tox screen, also with her anxiety issues.
--- NOTE | 2019-05-04 06:15 | DCINST_ITS ---
Discharge Diet: No Restrictions Discharge Activity: May not drive while taking narcotic pain medications., May Shower, May Take a Tub Bath May resume sexual activity in: 4-6 weeks Lifting Restrictions: 20 pounds Additional Activity Instructions:: Nothing in the vagina for 4-6 weeks. You may return to work/school in 6 weeks. Change Dressing in (Days):: 7 Remove Dressing in (days):: 7 Cleanse incision/area with: Soap & Water, Keep Dressing Clean & Dry Additional Instructions: If you experience any of the following, contact your healthcare provider. * Bleeding that soaks a pad every hour for 2 hours * Fever 100.4 or higher * Unrelieved incision or abdominal pain * Swelling, redness, discharge or bleeding from your incision * Problems urinating (including inability to urinate or burning while urinating). * Visual changes * Severe headache * Flu-like symptoms * Pain or redness in one of both of your breasts * Pain, warmth, tenderness or swelling in your legs, especially the calf area * Frequent nausea and vomiting * Symptoms of depression or anxiety If you experience any of the following, call 911 or go to the nearest Emergency Room. * Chest pain * Problems breathing * Seizure activity * Partial or complete paralysis of a body part, slurred speech, weakness or drooping of the face, or a sudden inability to walk or hold your balance Allergies/Adverse Reactions: Allergies morphine Allergy (Verified 05/02/19 03:27) Anaphylaxis alprazolam [From Xanax] Adverse Reaction (Verified 05/02/19 03:27) Other Medications to take at Discharge Vits [Prenatabs FA] 1 tab PO DAILY 04/24/19 Hydroxyzine HCl 50 mg PO PRN PRN 05/02/19 Docusate Sodium [Colace] 100 mg PO BID #30 cap 05/04/19 Naproxen [Naprosyn] 250 - 500 mg PO TID PRN PRN #30 tab 05/04/19 Oxycodone [Oxyir] 5 - 10 mg PO Q6H PRN PRN 7 Days #20 tablet 05/04/19 Polyethylene Glycol 3350 [Miralax] 17 gm PO DAILY PRN #14 packet 05/04/19 levoFLOXacin tablet [Levaquin tablet] 750 mg PO DAILY 12 Days #12 tab 07/18/19 The following prescriptions were given: Docusate Sodium [Colace] 100 mg PO BID #30 cap Transmission Status: Pending to [facility] levoFLOXacin tablet [Levaquin tablet] 750 mg PO DAILY 12 Days #12 tab Transmission Status: Pending to [facility] Polyethylene Glycol 3350 [Miralax] 17 gm PO DAILY PRN #14 packet PRN Reason: Constipation Transmission Status: Pending to [facility] Naproxen [Naprosyn] 250 - 500 mg PO TID PRN PRN #30 tab PRN Reason: Mild-Mod Pain (1-02/24) Transmission Status: Pending to [facility] Oxycodone [Oxyir] 5 - 10 mg PO Q6H PRN PRN 7 Days #20 tablet PRN Reason: Mod-Severe Pain (-07/27) Transmission Status: Sent to [facility] Follow-Up: Call to make an appointment with your doctor for an incision check in 1-2 weeks. You will also need a 6 week post- follow up appointment. Test results from this visit will be discussed in further detail at your follow- up appointment, if applicable. Please Follow Up With: Kia Rodriguez MD - [phone] When: Call to make an appointment for an incision check in 2 weeks. Primary Care Physician: Care Physician,No Primary [Primary Care Provider] - Proposed Discharge Date: 05/06/19
[2019-05-04] MEDS: Lactated Ringers 1,000 ML 100 ML IV (06:33)
[2019-05-04] MEDS: Acetaminophen 500 MG Tablet 1000 MG PO ×3 (06:33→23:24)
[2019-05-04] MEDS: levoFLOXacin IV 750 MG/150 ML BAG 100 MG IV (06:33)
[2019-05-04] MEDS: oxyCODONE 5 MG Tablet PO ×3 (06:33→17:33)
[2019-05-04 07:20] LABS: Hematocrit 24.1 % (37-47); Hemoglobin 7.7 g/dL (12.0-15.0); Mean Corpuscular Hgb 28.7 pg (27.0-32.0); Mean Corpuscular Volume 89.9 fL (81-99); Mean Platelet Vol. 11.7 fl (6.2-12.0); Platelet Count 249 K/mm3 (150-450); RBC Distribution Width CV 14.1 % (11.6-14.6); RBC Distribution Width SD 45.7 fl (35.1-43.9); Red Blood Count 2.68 M/mm3 (4.2-5.4); White Blood Count 17.6 K/mm3 (4.4-11.0)
[2019-05-04 07:23] LABS: Creatinine, Serum 0.64 mg/dL (0.55-1.02); EST Glomerular Filtration Rate 122 mL/min (>60); Est Glom Filt Rate - Afr Amer 148 mL/min (>60); Estimated Creatinine Clearance 118.05 ml/min
[2019-05-04] MEDS: Ipratropium/Albuterol Sulfate 3 ML AMPUL.NEB INHALATION ×2 (07:31→18:55)
--- NOTE | 2019-05-04 09:53 | NURSING ---
[address] Rodriguez to inform her of patient's SPo2 maintaining between 86-89% during anxious moments and between 91-93% when resting; orders recieved from Dr. Rodriguez.
--- NOTE | 2019-05-04 09:56 | NURSING ---
[address] Rodriguez to inform her that patient's condition has not improved and that patient is on 4L of O2 via nasal cannula and maintaining 91-93% when resting; this RN stated that patient is very anxious and this RN is having difficulty preforming care d/t patient's anxiety; Dr. Rodriguez stated that she will be in to evaluate patient.
--- NOTE | 2019-05-04 10:21 | NURSING ---
Addendum entered by Sue Salgado 05/04/19 10:22: removed on 05/03/19 at 0000 Original Note: Epidural removed, blue tip intact.
--- NOTE | 2019-05-04 10:27 | NURSING ---
Late entry for 05/03/19 RN called to room at 0600 reporting extreme pain along her surgical site. PRN dilaudid given and K pad initiated. Pulse oximetry reading 88-90% on room air. Patient encouraged to not hold breath when painful and take deep breaths, educated on incentive spirometer. 2liters NC applied now 94%. Dr Rodriguez updated on the above. Dr bermeo to see the patient at 0715.
[2019-05-04] MEDS: Ferrous Sulfate 325 MG Tablet PO ×2 (10:31→17:39)
[2019-05-04] MEDS: Prenatal Vits Tablet 1 TABLET PO (10:32)
--- NOTE | 2019-05-04 13:49 | CASEMGMT ---
Social Work Labor and Delivery Unit Presented to patient/mother of baby (MOB) room for social work assessment related to consult for maternal use of marijuana in . MOB also with history of depression and anxiety. Upon arrival to the room, the room was darkened and this junior underwriter met by father of baby (FOB) who reports MOB is just going to sleep. Informed that this junior underwriter does need to talk to MOB but that can try back later today or tomorrow morning. FOB reports this would be appreciated as MOB has not had much rest yet. Plan: Try to see MOB again for assessment, either today or tomorrow morning. -CHIQUI Srinivasan, HOME BASED ASSISTANT
[2019-05-04] MEDS: Senna/Docusate Sodium 1 Tablet PO (17:34)
[2019-05-04] MEDS: Enoxaparin 40 MG/0.4 ML Syringe SC (17:34)
[2019-05-04] MEDS: Naproxen 250 MG Tablet PO (20:26)
[2019-05-05 01:00] VITALS: PULSE 110; RESP 18; O2SAT 95
[2019-05-05] MEDS: Ipratropium/Albuterol Sulfate 3 ML AMPUL.NEB INHALATION (01:00)
[2019-05-05 02:45] VITALS: BP 118/62; PULSE 113; RESP 18; TEMP 36.9; O2SAT 96
[2019-05-05] MEDS: Acetaminophen 500 MG Tablet 1000 MG PO ×3 (06:30→22:17)
--- NOTE | 2019-05-05 07:19 | PCM.PN.OB ---
Subjective: POD#3 Primary C/S Doing a little better States still more difficult to breathe at night. Asking about activity restrictions at home, driving. Incision care reviewed. Breast feeding. - Physical Exam General: Alert, Oriented x3, Cooperative, No apparent distress HEENT: Atraumatic, EOMI Neck: Supple Abdomen: Soft - minimally tender c/w postop status. Skin: Incision - CDI. Mepilex in place Neurological: Cranial nerves II-XII grossly intact Psych/Mental Status: Anxious Vital Signs Temp Pulse Resp BP Pulse Ox 98.4 F 113 H 18 118/62 96 05/05/19 02:45 05/05/19 02:45 05/05/19 02:45 05/05/19 02:45 05/05/19 02:45 Oxygen Flow Rate (L/min) 2 Oxygen Delivery Method Room Air Weight: 88.2 kg Body Mass Index (BMI) 33.3 Intake and Output for Last 24 Hours 05/03/19 05/04/19 05/05/19 23:59 23:59 23:59 Intake Total 2910 / 2910 Output Total 3900 / 3900 1000 / 1000 Balance -990 / -990 -1000 / -1000 Laboratory Tests Past 24 Hrs 18/05 05/18 06:54 06:54 WBC 17.6 H RBC 2.68 L Hgb 7.7 L Hct 24.1 L MCV 89.9 MCH 28.7 MCHC 32.0 RDW Std Deviation 45.7 H RDW Coeff of Connor 14.1 Plt Count 249 MPV 11.7 Creatinine 0.64 Estim Creat Clear Calc 118.05 Est GFR (MDRD) Af Amer 148 Est GFR (MDRD) Non-Af 122 Medical Necessity - Tobacco Use Smoking Status: Former smoker Assessment/Plan POD#3 Primary C/S for CPD. failure to descend with 6+ hr after complete #1) Anxiety -- allergic rxn to Xanax prior. Needs prn med for sx. States multiple meds in past and nothing good but Hydroxyzine. PRN Hydroxyzine #2) hypoxia and bilateral lower lobe pneumonia. CTA was NEG for PE. Improved. no longer needing supplemental O2. Continue pulmonary toilet and IV abx until dischg for Levaquin PO after IV daily dose and RX sent to pharmacy for this also. Continues AFEB No cough no respiratory sx. Scheduled respiratory treatments until dischg. #3) Pain control. Continue other prn meds. Possible dischg home later today. Baby stable and released. pt to decide re dischg based on her level of comfort with going home. Continue care. library services assistant consult ordered for h/o marijuana positive tox screen, also with her anxiety issues.
--- NOTE | 2019-05-05 07:28 | PCM.DC.SUM ---
Discharge Date and Diagnosis Date of Admission: 05/02/19 - 38 3/7 wk SROM Date of Discharge: 05/05/19 - S/P primary C/S CPD, hypoxia, B lower lobe pneumonia Hospital Course and Treatment Consultations 05/02/19 04:10 Consult: Mental Health/Crisis Routine Reason for consult?: THC use in Aug. pt states testing positive in the office Sep 2018 Date Notified:: 05/02/19 Time notified:: 04:10 Operations: - - induction of labor after SROM. primary C/S CXR, CTA Summary of Care Provided: The patient is a 23 year old female presents at 38 3/7 wk with SROM. Admitted, epidural placed. Progressed to C and P and no descent. Primary C/S for CPD, arrest of descent. 8# 9 oz male Ap 8/9. Postop course complicated by bilateral lower lobe pneumonia and mild hypoxia requiring 3-4 L N.C while sleeping. CXR POD#1 later in evening to dx this. CTA neg for PE on POD#2 early AM. Levaquin, DuoNeb and prn albuterol inhalers given . Preop Hgb 9.7 g/dl with then acute blood loss anemia superimposed on preexisting iron deficiency anemia. Postop Hgb POD#2 7.7 g/dl. Pt afeb and stable vitals. no longer requiring supplemental oxygen Exam benign Ongoing anxiety. Prn hydoxyzine for this. Disch home POD#3 (or 4 , if pt uncomfortable with dishg POD#3) RTO in 2 and 6 wk for postop / follow up. - Physical Exam Vital Signs Temp Pulse Resp BP Pulse Ox 98.4 F 113 H 18 118/62 96 05/05/19 02:45 05/05/19 02:45 05/05/19 02:45 05/05/19 02:45 05/05/19 02:45 Oxygen Flow Rate (L/min) 2 Oxygen Delivery Method Room Air Weight: 88.2 kg Body Mass Index (BMI) 33.3 Intake and Output for Last 24 Hours 05/03/19 05/04/19 05/05/19 23:59 23:59 23:59 Intake Total 2910 / 2910 Output Total 3900 / 3900 1000 / 1000 Balance -990 / -990 -1000 / -1000 Discharge Diet: No Restrictions Discharge Activity: May not drive while taking narcotic pain medications., May Shower, May Take a Tub Bath May resume sexual activity in: 4-6 weeks Additional Activity Instructions:: Nothing in the vagina for 4-6 weeks. You may return to work/school in 6 weeks. Change Dressing in (Days):: 7 Remove Dressing in (days):: 7 Cleanse incision/area with: Soap & Water, Keep Dressing Clean & Dry Home Medications: Medications to take at Discharge Vits [Prenatabs FA] 1 tab PO DAILY 04/24/19 Hydroxyzine HCl 50 mg PO PRN PRN 05/02/19 Docusate Sodium [Colace] 100 mg PO BID #30 cap 05/04/19 Naproxen [Naprosyn] 250 - 500 mg PO TID PRN PRN #30 tab 05/04/19 Oxycodone [Oxyir] 5 - 10 mg PO Q6H PRN PRN 7 Days #20 tab 05/04/19 Polyethylene Glycol 3350 [Miralax] 17 gm PO DAILY PRN #14 packet 05/04/19 levoFLOXacin tablet [Levaquin tablet] 750 mg PO DAILY 12 Days #12 tab 05/04/19 Following Prescrptions Were Given to Patient: Docusate Sodium [Colace] 100 mg PO BID #30 cap Transmission Status: Received by [facility] levoFLOXacin tablet [Levaquin tablet] 750 mg PO DAILY 12 Days #12 tab Transmission Status: [facility] Polyethylene Glycol 3350 [Miralax] 17 gm PO DAILY PRN #14 packet PRN Reason: Constipation Transmission Status: Received by [facility] Naproxen [Naprosyn] 250 - 500 mg PO TID PRN PRN #30 tab PRN Reason: Mild-Mod Pain (1-02/24) Transmission Status: Received by [facility] Oxycodone [Oxyir] 5 - 10 mg PO Q6H PRN PRN 7 Days #20 tab PRN Reason: Mod-Severe Pain (4-1010) Transmission Status: Received by [facility] Primary Care Physician: Care Physician,No Primary [Primary Care Provider] - Please Follow Up With: Kia Rodriguez MD - [phone] When: Call to make an appointment for an incision check in 2 weeks. Medical Necessity - Tobacco Use Smoking Status: Former smoker Meaningful Use Info Meaningful Use Diagnoses (Choose all that apply): None applicable
[2019-05-05 09:45] VITALS: BP 140/90; PULSE 97; RESP 18; TEMP 36.7
[2019-05-05] MEDS: Prenatal Vits Tablet 1 TABLET PO (10:11)
[2019-05-05] MEDS: Naproxen 250 MG Tablet PO (10:11)
[2019-05-05] MEDS: Senna/Docusate Sodium 1 Tablet PO (10:12)
--- NOTE | 2019-05-05 12:55 | NURSING ---
1200- Respiratory therapist notified this RN pt does not want scheduled breathing treatments. Resp Therapist assessed lungs. States CTA throughout, but slightly diminished.
[2019-05-05] MEDS: levoFLOXacin 750 MG Tablet PO (15:04)
[2019-05-05] MEDS: Ferrous Sulfate 325 MG Tablet PO ×2 (15:05→17:22)
[2019-05-05 15:19] VITALS: BP 136/90; PULSE 100; RESP 18; TEMP 36.8; O2SAT 98
[2019-05-05 20:00] VITALS: BP 129/83; PULSE 94; RESP 18; TEMP 36.5; O2SAT 96
[2019-05-06] MEDS: Naproxen 250 MG Tablet PO ×2 (02:29→11:42)
[2019-05-06 02:30] VITALS: BP 123/77; PULSE 96; RESP 18; TEMP 37.1; O2SAT 92
--- NOTE | 2019-05-06 04:45 | NURSING ---
This RN rounding on patient and patient states that she feels like she isn't breathing right. This RN placed patient on SaO2 which read 87-91% on room air. Lungs auscultated and clear in all anterior lobes, crackles auscultated in all posterior lobes. Patient states she declined breathing treatment earlier and would like breathing treatment now. This RN contacted [facility] and requested breathing treatment for pt. Reported findings to Eladio CHRISTIANSEN.
[2019-05-06 05:00] VITALS: PULSE 97; RESP 20
[2019-05-06] MEDS: Ipratropium/Albuterol Sulfate 3 ML AMPUL.NEB INHALATION (05:00)
[2019-05-06 05:05] VITALS: O2SAT 91
[2019-05-06 05:55] VITALS: PULSE 113; RESP 18; O2SAT 96
[2019-05-06] MEDS: Acetaminophen 500 MG Tablet 1000 MG PO (06:45)
[2019-05-06 09:00] VITALS: BP 133/86; PULSE 97; RESP 16; TEMP 37.4
--- NOTE | 2019-05-06 11:08 | PCM.PN.OB ---
Patient Problems: Active and Suspected Problems Pneumonia (Acute) delivery delivered (Acute) Subjective: Denies cough, fever, chills, chest pain or shortness of breath. Feels much better with antibiotics. Pain controlled. Passing flatus, no bowel movement yet. Denies heavy lochia. Objective: AVSS - Physical Exam General: Alert, Oriented x3, Cooperative, No apparent distress HEENT: Atraumatic, Normocephalic Lungs: Clear to auscultation, Normal air movement, No rhonchi, No wheeze, No rales Cardiovascular: Regular rate, Regular Rhythm, Normal S1, Normal S2 Abdomen: Soft, Non Tender, Non-Distended, - - Fundus firm and nontender, lochia scant; incisional dressing c/d/i Extremities: No edema, No Calf Tenderness Neurological: Neuro grossly intact Psych/Mental Status: Normal Affect, Appropriate, Alert and oriented to time, place, person, mood and affect Vital Signs Temp Pulse Resp BP Pulse Ox 98.8 F 113 H 18 123/77 H 96 05/06/19 02:30 05/06/19 05:55 05/06/19 05:55 05/06/19 02:30 05/06/19 05:55 Oxygen Flow Rate (L/min) 2 Oxygen Delivery Method Room Air Weight: 88.2 kg Body Mass Index (BMI) 33.3 Intake and Output for Last 24 Hours 05/04/19 05/05/19 05/06/19 23:59 23:59 23:59 Output Total 1000 / 1000 Balance -1000 / -1000 Medical Necessity - Tobacco Use Smoking Status: Former smoker Assessment/Plan All Active Problems Pneumonia (Acute) delivery delivered (Acute) 23yo POD#2 s/p PLTCS and pneumonia on abx doing well. - O positive, Rubella immune - Routine postop care -Continue PO Levoquin -d/c home today
[2019-05-06] MEDS: Prenatal Vits Tablet 1 TABLET PO (11:42)
[2019-05-06] MEDS: Senna/Docusate Sodium 1 Tablet PO (11:43)
--- NOTE | 2019-05-06 15:20 | NURSING ---
1150 Anxious to go home. States she wants to leave as soon as she can. Discharged to home with infant via wheelchair to car. Pedrito well.
== END 2019-05-06 12:15 | disposition home or self-care (01) | DRG 786 ==
LOC: WPOUT 03:32 → WP 21:15
PROVIDERS: Obstetrics & Gynecology; Admitting Provider Obstetrics & Gynecology; Visit Provider Obstetrics & Gynecology
DX: O65.1 Obstructed labor due to generally contracted pelvis (principal); J18.9 Pneumonia, unspecified organism; O99.324 Drug use complicating childbirth; D62 Acute posthemorrhagic anemia; O64.8XX0 Obstructed labor due to other malposition and malpresentation, not applicable or unspecified; Z3A.38 38 weeks gestation of pregnancy; Z37.0 Single live birth; F12.90 Cannabis use, unspecified, uncomplicated; F41.9 Anxiety disorder, unspecified; O99.344 Other mental disorders complicating childbirth; O99.52 Diseases of the respiratory system complicating childbirth; R09.02 Hypoxemia; Z87.891 Personal history of nicotine dependence; D50.9 Iron deficiency anemia, unspecified; O99.02 Anemia complicating childbirth
CPT/HCPCS: 59025; 59050; 71046; 71275; 80307; 82565; 84112; 85025; 85027; 86850; 86900; 94640; 99218; J7120; Q9967; A4216; G0378; J2405

== ENCOUNTER 2020-02-08 10:53 | Emergency (ER) | payer MEDICAID, SELFPAY ==
[2019-05-02 02:30] VITALS: BMI 33.3
[2020-02-08 10:54] VITALS: BP 116/80; PULSE 92; RESP 18; TEMP 36.6; O2SAT 98; BMI 24.0
--- NOTE | 2020-02-08 11:09 | ED.DCSUM_ITS ---
History of Present Illness Chief Complaint: Abd Pain Informant: Patient Onset: Days - Onset Wednesday Context: Sudden Onset Timing: Continuous Quality: Sharp and achy Location: Generalized Current Severity: Mild Maximum Severity: Severe Worsened by: Drinking or eating anything Relieved by: Nothing Associated Symptoms: Diarrhea with incontinence this morning Narrative: Patient is a 24-year-old woman who presents because of abdominal pain. She was seen yesterday by her primary care provider. She was sent to outside facility. She informed the outside facility she had emesis x1 that was coffee-ground. She is vomited since then and it is green in color. Reports she had a black stool. She states this morning the diarrhea was brown. There was no blood or mucus. She denies intolerance to greasy or fried foods. Mother had gallbladder removed the age of 35. She has no signs or symptoms of . She delivered 9 months ago. There was no complications or problems with delivery or . She denies cardiac or respiratory symptoms. She denies urologic symptoms. She denies history of bowel obstruction. She had a with delivery of her first child 9 months ago. Prior similar symptoms: Yes Recent Illness/Hospitalization: Yes - Past Medical History (1) Pneumonia Status: Resolved Past Medical History - Allergies and Home Meds Allergies/Adverse Reactions: Allergies morphine Allergy (Verified 02/08/20 10:57) Anaphylaxis alprazolam [From Xanax] Adverse Reaction (Verified 02/08/20 10:57) Other Primary Care Physician: Care Physician,No Primary [NON-STAFF] - Prior records reviewed: Yes - Recs from outside facility were requested Surgical History: - - Lives: With Family Smoking Status: Former smoker Alcohol: None Drugs: Marijuana Review of Systems General: Denies: Chills, Fever, Malaise, Subjective, Sweats Eyes: Denies: Visual changes - bilaterally, Blurred Vision - bilaterally ENT: Reports: - - Complain of thirst and dry mouth.. Denies: Rhinorrhea, Sore throat Cardiovascular: Denies: Chest pain, Palpitations Respiratory: Denies: Dyspnea, Cough, Dyspnea on exertion Gastrointestinal: Reports: Abdominal pain, Nausea, Vomiting, Diarrhea, Melena. Denies: Constipation, Hematochezia Genitourinary: Denies: Dysuria, Hematuria, Frequency Musculoskeletal: Denies: Myalgias, Arthralgias, Neck pain, Back pain, Swelling, Extremity Pain, -, - Skin: Denies: Rash, Wounds Neurological: Denies: Headache, Weakness, Numbness Psych: Reports: Anxiety Hematologic: Denies: Easy bruising, Easy bleeding Allergy: Denies: Uticaria, Swelling of the mouth, Swelling of the tongue Physical Exam Vital Signs/Narrative: Vital Signs Temp Pulse Resp BP Pulse Ox 02/08/20 10:54 98 F 92 18 116/80 98 Inital Vital Signs reviewed: Yes General: Well nourished, Well developed, No Acute Distress Head: Normocephalic, Atraumatic Eyes: Perrl, EOMI. Negative for: Pale conjunctiva, Scleral icterus ENT: Moist mucous membranes, No rhinorrhea Neck: Supple, Nontender, No lymphadenopathy, No JVD Cardiovascular: Regular rate, Regular rhythm, No murmurs, Normal S1, Normal S2 Respiratory: No distress, CTA bilaterally, Chest nontender Abdomen: Soft, Nondistended, No masses, Tender, Hypoactive bowel sounds. Negative for: Nontender, Normal bowel sounds, Guarding, Rebound tenderness, Hyperactive bowel sounds, Hepatomegaly, Splenomegaly, Mass, Pulsatile mass, Ventral hernia, Inguinal hernia, Umbilical hernia, Rovsig's sign, Chapman's sign Rectal: Deferred Back: Nontender, Normal Inspection Extremities: Nontender, No edema Skin: Normal color, No rash Neurological: Alert, Oriented x3, Cranial nerves II-XII grossly intact, Normal Strength, Normal Sensation Psychological: Normal Mood, - - Affect is flat Diagnostic/Tx/Re-eval Laboratory Results 02/08/20 02/08/20 02/08/20 11:16 11:16 11:16 WBC 5.2 RBC 4.52 Hgb 12.7 Hct 39.2 MCV 86.7 MCH 28.1 MCHC 32.4 RDW Std Deviation 38.8 RDW Coeff of Connor 12.1 Plt Count 306 MPV 10.2 Immature Gran % (Auto) 0.400 Neut % (Auto) 66.8 Lymph % (Auto) 22.0 Perkins % (Auto) 10.0 Eos % (Auto) 0.4 Baso % (Auto) 0.4 Absolute Neuts (auto) 3.5 Absolute Lymphs (auto) 1.15 Nucleated RBC % 0 Sodium 140 Potassium 3.4 L Chloride 105 Carbon Dioxide 25.0 Anion Gap 10 BUN 9 Creatinine 0.78 Estim Creat Clear Calc 96.04 Est GFR (MDRD) Af Amer 116 Est GFR (MDRD) Non-Af 96 BUN/Creatinine Ratio 11.5 Glucose 80 Calcium 8.9 Total Bilirubin 0.20 AST 31 ALT 23 Alkaline Phosphatase 80 Total Protein 7.6 Albumin 3.9 Globulin 3.7 Albumin/Globulin Ratio 1.1 Lipase 48 L Serum , Qual NEGATIVE Patient's work-up is unremarkable including test. She was informed of all of her laboratory test. She was given opportunity ask questions. Her questions were asked certain to her satisfaction. She was discharged with prescription for Bentyl and Imodium. She has a prescription for Zofran. - Medical Decision Making Differential diagnosis includes viral gastroenteritis, irritable bowel syndrome, gastritis/reflux/peptic ulcer disease, biliary colic, doubt hernia internal, work-up included a liver panel, lipase, CBC and electrolytes. She received Zofran for her nausea and GI cocktail because of reported coffee-ground emesis 2 days ago. Records from outside facility were requested. ED Disposition - Plan for ED Patient: Diagnosis: Abdominal pain, vomiting, and diarrhea, Mild dehydration Instructions: ED Vomiting and Diarrhea Nonspecific Adult Prescriptions: Dicyclomine HCl [Bentyl] 20 mg PO TIDAC #20 cap Transmission Status: Pending to [facility] Loperamide [Imodium] 2 mg PO Q2H PRN PRN #10 cap PRN Reason: Persistent diarrhea Transmission Status: Pending to [facility] Referrals: Care Physician,No Primary [NON-STAFF] - Doctor,Your [STAFF PHYSICIAN] - 3-5 Days if not improving
[2020-02-08] MEDS: Ondansetron 4 MG/2 ML Vial IV (11:18)
[2020-02-08] MEDS: Mag Hydrox/Al Hydrox/Simeth 30 ML UDC PO (11:20)
[2020-02-08 11:37] LABS: Absolute Lymphocyte Count 1.15 X10^3/uL (0.83-4.51); Absolute Neutrophil Count 3.5 X10^3/uL (2.0-7.7); Basophil# 0.02 X10^3/uL; Basophil% 0.4 % (0-1); Eosinophil# 0.02 X10^3/uL; Eosinophils% 0.4 % (0-5); Hematocrit 39.2 % (37-47); Hemoglobin 12.7 g/dL (12.0-15.0); Lymphocyte # 1.15 X10^3/ul (4.0); Mean Corp Hgb Conc 32.4 g/dL (32-36); Mean Corpuscular Hgb 28.1 pg (27.0-32.0); Mean Corpuscular Volume 86.7 fL (81-99); Mean Platelet Vol. 10.2 fl (6.2-12.0); Monocyte# 0.52 X10^3/uL; NRBC Flagged by Analyzer 0 % (0-5); Neutrophil # 3.49 X10^3/uL (2.7-7.7); Neutrophil % 66.8 % (47-70); Platelet Count 306 K/mm3 (150-450); RBC Distribution Width CV 12.1 % (11.6-14.6); RBC Distribution Width SD 38.8 fl (35.1-43.9); Red Blood Count 4.52 M/mm3 (4.2-5.4); White Blood Count 5.2 K/mm3 (4.4-11.0)
[2020-02-08 11:43] LABS: Internal QC Validated? YES +Cl - CLEAR BKGD; Pregnancy, Serum, hCG Quali. NEGATIVE Negative
[2020-02-08 11:48] LABS: ALB/GLOB Ratio 1.1 RATIO (0.9-2.4); AST(SGOT) 31 U/L (15-37); Alanine Aminotransfer ALT/SGPT 23 U/L (13-56); Albumin, Serum 3.9 g/dL (3.2-5.0); Alkaline Phosphatase 80 U/L (45-117); Anion Gap 10 (5-15); BUN 9 mg/dL (7-18); BUN/Creat Ratio 11.5 RATIO (10-20); Calcium,Total 8.9 mg/dL (8.5-10.1); Chloride 105 mmol/L (98-107); Creatinine, Serum 0.78 mg/dL (0.55-1.02); EST Glomerular Filtration Rate 96 mL/min (>60); Est Glom Filt Rate - Afr Amer 116 mL/min (>60); Estimated Creatinine Clearance 96.04 ml/min; Globulin 3.7 g/dL (2.2-4.2); Glucose 80 mg/dL (74-106); Lipase 48 U/L (73-393); Potassium 3.4 mmol/L (3.5-5.1); Protein, Total 7.6 g/dL (6.4-8.2); Sodium Level 140 mmol/L (136-145)
[2020-02-08 12:16] VITALS: BP 116/76; PULSE 86; RESP 18; O2SAT 98
== END 2020-02-08 12:23 | disposition home or self-care (01) ==
LOC: ED 11:47
PROVIDERS: Emergency Provider Emergency Medicine; PCP Physician Assistant
DX: R10.9 Unspecified abdominal pain (principal); R11.10 Vomiting, unspecified; R19.7 Diarrhea, unspecified; E86.0 Dehydration; Z87.01 Personal history of pneumonia (recurrent); Z87.891 Personal history of nicotine dependence
CPT/HCPCS: 80053; 83690; 84703; 85025; 96374; 99284; A4216; J2405